=== PATIENT | female | born 1940 | race Caucasian/White ===

== ENCOUNTER 2022-07-10 19:54 | Inpatient (IN) | payer OTHER, SELFPAY ==
--- NOTE | ~2022-07-10 | US_ITS ---
EXAMINATION: US RETROPERITONEAL LIMITED (RENAL ONLY) CLINICAL INFORMATION: Right lower quadrant pain history of nephrolithiasis.. COMPARISON: None available. TECHNIQUE: Routine grayscale imaging of kidneys was performed. FINDINGS: RIGHT KIDNEY: 8.7 x 3.5 x 5.0 cm (SAG x AP x TRV). The kidney is normal in size, contour, and echogenicity. Renal cortical thickness is normal. No calculi or focal parenchymal lesions. No hydronephrosis. There is anechoic cyst in the upper pole measuring 2.2 x 1.9 x 1.7 cm. LEFT KIDNEY: 8.8 x 5.6 x 3.6 cm (SAG x AP x TRV). The kidney is normal in size, contour, and echogenicity. Renal cortical thickness is normal. No calculi or focal parenchymal lesions. No hydronephrosis. Few anechoic cysts seen. An upper pole cyst measures 1.1 x 0.9 x 0.9 cm, a lower pole cyst measures 1.0 x 1.1 x 1.0 cm and upper pole cyst measures 1.4 x 1.0 x 1.1 cm. US/US renal BI IMPRESSION: Bilateral renal cysts. There are no echogenic stones or hydronephrosis.
[2022-07-10 20:25] VITALS: BP 136/67; PULSE 78; TEMP 36.3
[2022-07-10 20:42] VITALS: BMI 15.4
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
[2022-07-11 07:27] LABS: Estimated Average Glucose 91 mg/dL; Hemoglobin A1c % 4.8 %
[2022-07-11 07:38] LABS: Alanine Aminotransferase 15 U/L (0-31); Albumin Level 3.3 g/dL (3.5-5.0); Alkaline Phosphatase 69 U/L (39-117); Anion Gap 10 (12-20); Aspartate Amino Transferase 23 U/L (5-31); Blood Urea Nitrogen 23 mg/dL (9-16); Calcium 9.4 mg/dL (8.4-10.2); Carbon Dioxide 28 mmol/L (22-29); Chloride 109 mmol/L (96-108); Cholesterol 224 mg/dL; Creatinine Clr Calc Pharmacy 27.5; Estimated Glomerular Filt Rate 59; Glucose Fasting 86 mg/dL (60-99); HDL Cholesterol 68 mg/dL; LDL Cholesterol Calculated 144 mg/dl; Potassium 3.9 mmol/L (3.3-5.1); Sodium 143 mmol/L (135-145); Total Protein 5.8 g/dL (6.5-8.0); Triglycerides 63 mg/dL
[2022-07-11 08:08] LABS: Folate 9.1 ng/mL (> or = 4.0); Vitamin B12 752 pg/mL (200-900)
[2022-07-11 08:40] VITALS: BP 106/55; PULSE 57; RESP 16; TEMP 36.6; O2SAT 99
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
[2022-07-11 18:00] VITALS: BP 107/53; PULSE 56; RESP 16; TEMP 36.8; O2SAT 97
[2022-07-11 18:01] LABS: Appearance Urine Clear; Color Urine Yellow; Glucose Urine UA Negative (Negative); Leukocyte Esterase Urine Trace (Negative); Nitrite Urine Negative (Negative); PH 5.5 (5.0-9.0); UMIC TRIGGER UACC YES; Urine Blood Negative (Negative); Urine Ketones Negative (Negative); Urine Protein Negative (Neg-Trace)
[2022-07-11 18:06] LABS: Bacteria Urine None Seen (None Seen); Hyaline Casts Urine 0-2 /LPF (0-2); RBC Urine 0-2 /HPF (0-2); UACC Culture Trigger YES
[2022-07-11] MEDS: OLANZapine 2.5 MG TABLET PO (20:31)
[2022-07-12 08:30] VITALS: BP 132/83; PULSE 71; RESP 18; TEMP 36.6; O2SAT 99
[2022-07-12] MEDS: Cyanocobalamin (Vitamin B-12) 1,000 MCG TABLET 1000 MCG PO (08:43)
[2022-07-12] MEDS: Calcium + Vitamin D 250 MG TABLET 500 MG PO (08:43)
[2022-07-12] MEDS: Furosemide 20 MG TABLET PO (08:43)
[2022-07-12] MEDS: amLODIPine Besylate 2.5 MG TABLET PO (08:43)
[2022-07-12] MEDS: Atorvastatin Calcium 10 MG TABLET PO (08:43)
--- NOTE | 2022-07-12 11:02 | PC.NURSE ---
Pt lost her balance and lowered herself on the toilet, c/o dizziness, weakness, VSS, sports writer notified Dr Serna and received new orders for 1:1 or safety
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
[2022-07-12 20:40] VITALS: BP 99/58; PULSE 59; RESP 16; TEMP 36.4; O2SAT 99
[2022-07-12] MEDS: risperiDONE 0.25 MG TABLET PO (20:55)
[2022-07-13 07:50] VITALS: BP 114/62; PULSE 75; RESP 18; TEMP 36.2; O2SAT 99
[2022-07-13] MEDS: Atorvastatin Calcium 10 MG TABLET PO (08:16)
[2022-07-13] MEDS: amLODIPine Besylate 2.5 MG TABLET PO (08:16)
[2022-07-13] MEDS: Calcium + Vitamin D 250 MG TABLET 500 MG PO (08:16)
[2022-07-13] MEDS: Cyanocobalamin (Vitamin B-12) 1,000 MCG TABLET 1000 MCG PO (08:16)
[2022-07-13] MEDS: Furosemide 20 MG TABLET PO (08:16)
--- NOTE | 2022-07-13 09:50 | PM.PSYDC ---
DS: Providers Provider Date of admission: 07/10/22 19:54 Primary care physician: Unknown Physician Consults: 07/10/22 23:22 Consult to Hospitalist Routine Comment: Consulting Provider: Hospitalist Reason For Exam: OSH admission DS: Diagnosis Discharge Diagnosis (1) Psychosis: Status: Acute (2) Delusional disorder, persecutory type: Status: Acute (3) Dementia with psychosis: Status: Acute DS: Medications Discharge Medications Home Medications: Home Medications Medication Instructions Recorded Confirmed amlodipine 2.5 mg tablet 2.5 mg PO DAILY 07/10/22 07/10/22 cyclosporine 0.05 % eye drops in a 1 drp ophthalmic (eye) BID 07/10/22 07/10/22 dropperette furosemide 20 mg tablet 20 mg PO DAILY 07/10/22 07/10/22 senna 8.6 mg PO DAILY PRN Constipation 07/10/22 07/10/22 simvastatin 10 mg PO DAILY 07/10/22 07/10/22 Data Data Completed and Pending Completed studies during hospitalization [Text1]: 07/11/22 07/11/22 07/11/22 06:58 06:58 17:48 Sodium 143 Potassium 3.9 Chloride 109 H Carbon Dioxide 28 Anion Gap 10 L BUN 23 H Creatinine 0.92 Estim Creat Clear Calc 27.5 Estimated GFR 59 Fasting Glucose 86 Estimat Average Glucose 91 Hemoglobin A1c % 4.8 Calcium 9.4 Total Bilirubin 1.0 AST 23 ALT 15 Alkaline Phosphatase 69 Total Protein 5.8 L Albumin 3.3 L Triglycerides 63 Cholesterol 224 LDL Cholesterol, Calc 144 HDL Cholesterol 68 Vitamin B12 752 Folate 9.1 TSH 1.90 Free T4 1.20 Urine Color Yellow Urine Appearance Clear Urine pH 5.5 Ur Specific [place] 1.010 Urine Protein Negative Urine Glucose (UA) Negative Urine Ketones Negative Urine Blood Negative Urine Nitrite Negative Ur Leukocyte Esterase Trace H Urine RBC 0-2 Urine WBC 6-10 H Ur Squamous Epith Cells 6-10 Urine Bacteria None Seen Hyaline Casts 0-2 07/11/22 18:07 Urine clean catch - Clean Catch Midstream Urine Culture - Preliminary Culture too young to evaluate. Imaging Diagnostic Imaging Impressions Renal Ultrasound 07/11/22 16:30 IMPRESSION: Bilateral renal cysts. There are no echogenic stones or hydronephrosis. DS: Summary Time Spent with Patient Time attestation: Total time managing care of this patient today ____ minutes. Discharge Plan Discharge Referrals: Physician,Unknown J [Primary Care Provider] - 1 Week Discharge Medications: No Action amlodipine 2.5 mg tablet 2.5 mg PO DAILY furosemide 20 mg tablet 20 mg PO DAILY cyclosporine 0.05 % dropperette 1 drp ophthalmic (eye) BID simvastatin tablet 10 mg PO DAILY senna tablet 8.6 mg PO DAILY PRN (Reason: Constipation)
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
--- NOTE | 2022-07-13 15:41 | MHC.CLN ---
NUTRITION PATIENT REPORTS THAT SHE HAS LOST WEIGHT OVER PAST YEAR. UNABLE TO QUANTIFY. BMI=15.4. AGREES TO ENSURE BID (NO CHOCOLATE). SUPPLEMENT PROVIDES 700 KCALS, 40 G PROTEIN. REPORTS THAT HAS NOT BEEN EATING MUCH. ENCOURAGE INTAKE AT MEALS AND SUPPLEMENT ABLE.
[2022-07-13 15:43] VITALS: BMI 15.4
[2022-07-13 18:00] VITALS: BP 113/58; PULSE 58; RESP 16; TEMP 36.2; O2SAT 100
[2022-07-13] MEDS: risperiDONE 0.25 MG TABLET 0.5 MG PO (20:07)
[2022-07-14 08:05] VITALS: BP 116/68; PULSE 77; RESP 16; TEMP 36; O2SAT 98
[2022-07-14] MEDS: amLODIPine Besylate 2.5 MG TABLET PO (09:37)
[2022-07-14] MEDS: Furosemide 20 MG TABLET PO (09:37)
[2022-07-14] MEDS: Atorvastatin Calcium 10 MG TABLET PO (09:38)
[2022-07-14] MEDS: Cyanocobalamin (Vitamin B-12) 1,000 MCG TABLET 1000 MCG PO (09:38)
[2022-07-14] MEDS: Calcium + Vitamin D 250 MG TABLET 500 MG PO (09:38)
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
[2022-07-14 18:00] VITALS: BP 103/49; PULSE 75; RESP 18; TEMP 36.4; O2SAT 97
[2022-07-14] MEDS: risperiDONE 0.25 MG TABLET 0.5 MG PO (20:20)
[2022-07-15 09:15] VITALS: BP 97/57; PULSE 68; TEMP 35.9; O2SAT 99
[2022-07-15] MEDS: Cyanocobalamin (Vitamin B-12) 1,000 MCG TABLET 1000 MCG PO (09:26)
[2022-07-15] MEDS: Calcium + Vitamin D 250 MG TABLET 500 MG PO (09:26)
[2022-07-15] MEDS: Atorvastatin Calcium 10 MG TABLET PO (09:26)
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
--- NOTE | 2022-07-15 15:56 | MHC.CLN ---
F/U STAFF REPORTS THAT PATIENT IS EATING SMALL AMOUNTS. PATIENT REPORTS NO CONCERNS WITH INTAKE AND LIKES ENSURE SUPPLEMENT. DIET=REGULAR WITH ENSURE BID (700 KCALS, 40 G PROTEIN). ENCOURAGE INTAKE OF MEALS AND SUPPLEMENT ABLE. RD TO FOLLOW WEEKLY.
[2022-07-15 19:00] VITALS: BP 97/55; PULSE 59; RESP 16; TEMP 36.1; O2SAT 96
[2022-07-15] MEDS: risperiDONE 0.25 MG TABLET 0.5 MG PO (21:13)
[2022-07-16 08:16] VITALS: BP 115/60; PULSE 75; RESP 18; TEMP 36.4; O2SAT 98
[2022-07-16] MEDS: Calcium + Vitamin D 250 MG TABLET 500 MG PO (09:24)
[2022-07-16] MEDS: Cyanocobalamin (Vitamin B-12) 1,000 MCG TABLET 1000 MCG PO (09:24)
[2022-07-16] MEDS: amLODIPine Besylate 2.5 MG TABLET PO (09:25)
[2022-07-16] MEDS: Atorvastatin Calcium 10 MG TABLET PO (09:25)
[2022-07-16] MEDS: Furosemide 20 MG TABLET PO (09:25)
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
[2022-07-16 15:32] VITALS: BMI 17.6
[2022-07-16 20:01] VITALS: BP 105/59; PULSE 64; RESP 16; TEMP 36.4; O2SAT 100
[2022-07-16] MEDS: risperiDONE 0.25 MG TABLET 0.5 MG PO (20:10)
[2022-07-17 09:00] VITALS: BP 107/53; PULSE 73; TEMP 36.7; O2SAT 97
[2022-07-17] MEDS: Atorvastatin Calcium 10 MG TABLET PO (09:00)
[2022-07-17] MEDS: Calcium + Vitamin D 250 MG TABLET 500 MG PO (09:01)
[2022-07-17] MEDS: amLODIPine Besylate 2.5 MG TABLET PO (09:01)
[2022-07-17] MEDS: Cyanocobalamin (Vitamin B-12) 1,000 MCG TABLET 1000 MCG PO (09:01)
[2022-07-17] MEDS: Artificial Tears 15 ML DROPS 1 DROP EYE-BOTH ×3 (09:02→20:52)
[2022-07-17] MEDS: Furosemide 20 MG TABLET PO (09:02)
--- NOTE | 2022-07-17 13:40 | P.PNPSI_ITS ---
Subjective Subjective Date of Service: 07/17/22 Reason For Visit: F29 Subjective Notes: Conditional Voluntary Interim History: The nursing staff reported the patient remains paranoid she has been talking about her Stalker and she stated that she has been hearing music all day long. The social services assistant reported will have a meeting next Wednesday and probably she will be back at her assisted living facility. On interview the patient denies or refused to engage in conversation regarding her Stalker. We will increase Risperdal up to 0.5 p.o. b.i.d. and 0.5 p.o. q .h.s. to target psychosis Mental Status Exam Mental Status Exam Patient Appearance: Well Grooomed and Appropriate Patient Orientation: Person and Situation Level of Consciousness: Awake and Appropriate Patient Behavior: Guarded and Passive Mood Description: Withdrawn Affect Description: Calm Patient Cognition Impaired: Yes Ability to Follow Directions: Good Speech Pattern: Impoverished and Appropriate Hallucinations: Auditory Delusions: Paranoid Ideation Thought Process: Distracted and Slowed Thinking Thought Content: positive for [place] and positive for Poverty of Content Judgement: Poor Diagnostics Vital Signs (24Hr): Vital Signs - 24 hr 07/16/22 20:01 07/17/22 06:00 Temperature 97.6 F 98.0 F Pulse Rate 64 73 Respiratory Rate 16 Blood Pressure 105/59 L 107/53 L Pulse Oximetry 100 97 Oxygen Delivery Method Room Air Room Air BMI result Body Mass Index 17.6 Labs 07/11/22 06:58 Imaging Radiology Impressions: ITS Impressions Renal Ultrasound 07/11/22 16:30 IMPRESSION: Bilateral renal cysts. There are no echogenic stones or hydronephrosis. Medications Medications Current Medications Acetaminophen (Acetaminophen 325 Mg Tablet) 650 mg PO Q6H PRN PRN Reason: Headache/Pain Mild Scale (1-3) Al Hydroxide/Mg Hydroxide (Magnesium Hydrox/Alum Hydrox 30 Ml Oral.Susp) 30 ml PO Q6H PRN PRN Reason: Heartburn/Nausea Amlodipine Besylate (Amlodipine Besylate 2.5 Mg Tablet) 2.5 mg PO DAILY [facility]; Protocol Last Admin: 07/17/22 09:01 Dose: 2.5 mg Artificial Tears (Artificial Tears 15 Ml Drops) 1 drop EYE-BOTH TID [facility] Last Admin: 07/17/22 09:02 Dose: 1 drop Atorvastatin Calcium (Atorvastatin Calcium 10 Mg Tablet) 10 mg PO DAILY [facility] Last Admin: 07/17/22 09:00 Dose: 10 mg Calcium Carbonate/Cholecalciferol (Calcium + Vitamin D 250 Mg Tablet) 500 mg PO DAILY [facility] Last Admin: 07/17/22 09:01 Dose: 500 mg Cyanocobalamin (Cyanocobalamin (Vitamin B-12) 1,000 Mcg Tablet) 1,000 mcg PO DAILY [facility] Last Admin: 07/17/22 09:01 Dose: 1,000 mcg Furosemide (Furosemide 20 Mg Tablet) 20 mg PO DAILY [facility]; Protocol Last Admin: 07/17/22 09:02 Dose: 20 mg Magnesium Hydroxide (Milk Of Magnesia 30 Ml Oral.Susp) 30 ml PO DAILY PRN PRN Reason: Constipation Risperidone (Risperidone 0.25 Mg Tablet) 0.25 mg PO TID PRN PRN Reason: Psychosis Risperidone (Risperidone 0.25 Mg Tablet) 0.5 mg PO BEDTIME [facility] Last Admin: 07/16/22 20:10 Dose: 0.5 mg Risperidone (Risperidone 0.25 Mg Tablet) 0.25 mg PO BID@0800,1500 [facility] Senna (Sennosides 8.6 Mg Tablet) 8.6 mg PO DAILY PRN PRN Reason: Constipation Trazodone HCl (Trazodone Hcl 50 Mg Tablet) 50 mg PO BEDTIME MRX1 PRN PRN Reason: Insomnia Allergies Allergies Allergy/AdvReac Type Severity Reaction Status Date / Time alendronate sodium AdvReac Unknown Verified 07/10/22 23:06 ondansetron [From Zofran] AdvReac Unknown Verified 07/10/22 23:06 oxybutynin AdvReac Unknown Verified 07/10/22 23:06 sulfamethoxazole AdvReac Unknown Verified 07/10/22 23:06 [From Bactrim] terazosin [From Hytrin] AdvReac Unknown Verified 07/10/22 23:06 trimethoprim [From Bactrim] AdvReac Unknown Verified 07/10/22 23:06 Assessment & Plan Assessment & Plan (1) Psychosis: Status: Acute Code(s): F29 - Unspecified psychosis not due to a substance or known physiological condition (2) Delusional disorder, persecutory type: Status: Acute Code(s): F22 - Delusional disorders (3) Dementia with psychosis: Status: Acute Code(s): F03.92 - Unspecified dementia, unspecified severity, with psychotic disturbance Plan 81 yo with possible dementia, admitted with paranoid and persecutory delusions. Patient believes she is being targeted by a man who enters her house, pricks her with needles and steals from her. She has been unable to sleep. Not eating. She is paranoid and barricading herself in her apartment. Admit to [facility] and group therapy Zyprexa was discontinue since he was too sedated and changed to Risperdal. We have been and start titrating slowly since she remains with auditory hallucinations and psychotic. On 07/17 to increase it to 0.25 p.o. b.i.d. and 0.5 p.o. q.h.s. a total dose of 1 mg a day. We will monitor her blood pressure since she was hypotensive history Reason for continued inpatient stay Substantial Risk for: inability to function, rapid decompensation and med/psych decompensation Time Spent With Patient Time: Total time managing care of this patient today __20__ minutes.
[2022-07-17] MEDS: risperiDONE 0.25 MG TABLET PO (16:00)
[2022-07-17 18:00] VITALS: BP 120/63; PULSE 67; RESP 18; TEMP 36.2; O2SAT 96
[2022-07-17] MEDS: risperiDONE 0.25 MG TABLET 0.5 MG PO (20:52)
[2022-07-18 07:58] VITALS: BP 123/62; PULSE 66; RESP 18; TEMP 36.4; O2SAT 99
[2022-07-18] MEDS: amLODIPine Besylate 2.5 MG TABLET PO (08:53)
[2022-07-18] MEDS: Furosemide 20 MG TABLET PO (08:53)
[2022-07-18] MEDS: risperiDONE 0.25 MG TABLET PO (08:53)
[2022-07-18] MEDS: Calcium + Vitamin D 250 MG TABLET 500 MG PO (08:54)
[2022-07-18] MEDS: Atorvastatin Calcium 10 MG TABLET PO (08:59)
[2022-07-18] MEDS: Cyanocobalamin (Vitamin B-12) 1,000 MCG TABLET 1000 MCG PO (08:59)
[2022-07-18] MEDS: Artificial Tears 15 ML DROPS 1 DROP EYE-BOTH ×2 (09:00→14:44)
--- NOTE | 2022-07-18 11:08 | P.PNPSI_ITS ---
Subjective Subjective Date of Service: 07/18/22 Reason For Visit: F29 Subjective Notes: Conditional Voluntary Interim History: The nursing staff reported the patient had been compliant with treatment, she slept poorly 5 hours and she stated that there is noises in her bedroom. She requested a room change. She remains delusional. She has been medication compliant and she feels safe in the unit. On interview the patient denies new symptoms, still paranoid. Mental Status Exam Mental Status Exam Patient Appearance: Appropriate Patient Orientation: Person and Situation Level of Consciousness: Awake and Appropriate Patient Behavior: Guarded and Passive Mood Description: Withdrawn Affect Description: Constricted Patient Cognition Impaired: Yes Ability to Follow Directions: Good Speech Pattern: Clear Hallucinations: None Delusions: Not Present Thought Process: Distracted and Linear Thought Content: positive for [place] Judgement: Poor Diagnostics Vital Signs (24Hr): Vital Signs - 24 hr 07/17/22 18:00 07/18/22 07:58 Temperature 97.1 F 97.5 F Pulse Rate 67 66 Respiratory Rate 18 18 Blood Pressure 120/63 123/62 Pulse Oximetry 96 99 Oxygen Delivery Method Room Air Room Air BMI result Body Mass Index 17.6 Labs 07/11/22 06:58 Imaging Radiology Impressions: ITS Impressions Renal Ultrasound 07/11/22 16:30 IMPRESSION: Bilateral renal cysts. There are no echogenic stones or hydronephrosis. Medications Medications Current Medications Acetaminophen (Acetaminophen 325 Mg Tablet) 650 mg PO Q6H PRN PRN Reason: Headache/Pain Mild Scale (1-3) Al Hydroxide/Mg Hydroxide (Magnesium Hydrox/Alum Hydrox 30 Ml Oral.Susp) 30 ml PO Q6H PRN PRN Reason: Heartburn/Nausea Amlodipine Besylate (Amlodipine Besylate 2.5 Mg Tablet) 2.5 mg PO DAILY [facility]; Protocol Last Admin: 07/18/22 08:53 Dose: 2.5 mg Artificial Tears (Artificial Tears 15 Ml Drops) 1 drop EYE-BOTH TID [facility] Last Admin: 07/18/22 09:00 Dose: 1 drop Atorvastatin Calcium (Atorvastatin Calcium 10 Mg Tablet) 10 mg PO DAILY [facility] Last Admin: 07/18/22 08:59 Dose: 10 mg Calcium Carbonate/Cholecalciferol (Calcium + Vitamin D 250 Mg Tablet) 500 mg PO DAILY [facility] Last Admin: 07/18/22 08:54 Dose: 500 mg Cyanocobalamin (Cyanocobalamin (Vitamin B-12) 1,000 Mcg Tablet) 1,000 mcg PO DAILY [facility] Last Admin: 07/18/22 08:59 Dose: 1,000 mcg Furosemide (Furosemide 20 Mg Tablet) 20 mg PO DAILY [facility]; Protocol Last Admin: 07/18/22 08:53 Dose: 20 mg Magnesium Hydroxide (Milk Of Magnesia 30 Ml Oral.Susp) 30 ml PO DAILY PRN PRN Reason: Constipation Risperidone (Risperidone 0.25 Mg Tablet) 0.25 mg PO TID PRN PRN Reason: Psychosis Risperidone (Risperidone 0.25 Mg Tablet) 0.5 mg PO BEDTIME [facility] Last Admin: 07/17/22 20:52 Dose: 0.5 mg Risperidone (Risperidone 0.25 Mg Tablet) 0.25 mg PO BID@0800,1500 [facility] Last Admin: 07/18/22 08:53 Dose: 0.25 mg Senna (Sennosides 8.6 Mg Tablet) 8.6 mg PO DAILY PRN PRN Reason: Constipation Trazodone HCl (Trazodone Hcl 50 Mg Tablet) 50 mg PO BEDTIME MRX1 PRN PRN Reason: Insomnia Allergies Allergies Allergy/AdvReac Type Severity Reaction Status Date / Time alendronate sodium AdvReac Unknown Verified 07/10/22 23:06 ondansetron [From Zofran] AdvReac Unknown Verified 07/10/22 23:06 oxybutynin AdvReac Unknown Verified 07/10/22 23:06 sulfamethoxazole AdvReac Unknown Verified 07/10/22 23:06 [From Bactrim] terazosin [From Hytrin] AdvReac Unknown Verified 07/10/22 23:06 trimethoprim [From Bactrim] AdvReac Unknown Verified 07/10/22 23:06 Assessment & Plan Assessment & Plan (1) Psychosis: Status: Acute Code(s): F29 - Unspecified psychosis not due to a substance or known physiological condition (2) Delusional disorder, persecutory type: Status: Acute Code(s): F22 - Delusional disorders (3) Dementia with psychosis: Status: Acute Code(s): F03.92 - Unspecified dementia, unspecified severity, with psychotic disturbance Plan 81 yo with possible dementia, admitted with paranoid and persecutory delusions. Patient believes she is being targeted by a man who enters her house, pricks her with needles and steals from her. She has been unable to sleep. Not eating. She is paranoid and barricading herself in her apartment. Admit to [facility] information Milieu and group therapy Zyprexa was discontinue since he was too sedated and changed to Risperdal. We have been and start titrating slowly since she remains with auditory hallucinations and psychotic. On 07/17 to increase it to 0.25 p.o. b.i.d. and 0.5 p.o. q.h.s. a total dose of 1 mg a day. We will monitor her blood pressure since she was hypotensive history Reason for continued inpatient stay Substantial Risk for: inability to function, rapid decompensation and med/psych decompensation Time Spent With Patient Time: Total time managing care of this patient today _20___ minutes.
--- NOTE | 2022-07-18 14:57 | PC.NURSE ---
Held 1500 Risperidone due to patient reporting sedation and observable drowsiness. MD Zuniga aware.
[2022-07-18 18:00] VITALS: BP 114/66; PULSE 69; RESP 18; TEMP 35.9; O2SAT 100
[2022-07-18] MEDS: risperiDONE 0.25 MG TABLET 0.5 MG PO (20:38)
[2022-07-19 08:15] VITALS: BP 108/56; PULSE 79; RESP 18; TEMP 36.1; O2SAT 99
[2022-07-19] MEDS: Furosemide 20 MG TABLET PO (08:33)
[2022-07-19] MEDS: Atorvastatin Calcium 10 MG TABLET PO (08:33)
[2022-07-19] MEDS: Calcium + Vitamin D 250 MG TABLET 500 MG PO (08:33)
[2022-07-19] MEDS: Artificial Tears 15 ML DROPS 1 DROP EYE-BOTH ×2 (08:34→20:30)
[2022-07-19] MEDS: amLODIPine Besylate 2.5 MG TABLET PO (08:34)
[2022-07-19] MEDS: Cyanocobalamin (Vitamin B-12) 1,000 MCG TABLET 1000 MCG PO (08:34)
--- NOTE | 2022-07-19 08:35 | HO.PSYCHPN ---
Subjective Subjective Date of Service: 07/19/22 Reason For Visit: F29 Subjective Notes: Conditional Voluntary Interim History: The nursing staff reported the patient had been compliant with medications but she feels very tired she stated the Risperdal makes her probably to sleepy. , she remains psychotic and paranoid at times with the Stalker coming to visit here. She feels safe in this unit. On interview the patient denies new symptoms pleasantly confused easily redirectable. Mental Status Exam Mental Status Exam Patient Appearance: Well Grooomed and Appropriate Patient Orientation: Person and Situation Level of Consciousness: Awake and Appropriate Patient Behavior: Guarded and Passive Mood Description: Withdrawn Affect Description: Constricted Patient Cognition Impaired: Yes Ability to Follow Directions: Good Speech Pattern: Clear Hallucinations: None Delusions: Not Present Thought Process: Distracted and Slowed Thinking Thought Content: positive for [place] and positive for Poverty of Content Judgement: Fair Diagnostics Vital Signs (24Hr): Vital Signs - 24 hr 07/18/22 18:00 Temperature 96.7 F L Pulse Rate 69 Respiratory Rate 18 Blood Pressure 114/66 Pulse Oximetry 100 Oxygen Delivery Method Room Air BMI result Body Mass Index 17.6 Labs 07/11/22 06:58 Imaging Radiology Impressions: ITS Impressions Renal Ultrasound 07/11/22 16:30 IMPRESSION: Bilateral renal cysts. There are no echogenic stones or hydronephrosis. Medications Medications Current Medications Acetaminophen (Acetaminophen 325 Mg Tablet) 650 mg PO Q6H PRN PRN Reason: Headache/Pain Mild Scale (1-3) Al Hydroxide/Mg Hydroxide (Magnesium Hydrox/Alum Hydrox 30 Ml Oral.Susp) 30 ml PO Q6H PRN PRN Reason: Heartburn/Nausea Amlodipine Besylate (Amlodipine Besylate 2.5 Mg Tablet) 2.5 mg PO DAILY [facility]; Protocol Last Admin: 07/18/22 08:53 Dose: 2.5 mg Artificial Tears (Artificial Tears 15 Ml Drops) 1 drop EYE-BOTH TID [facility] Last Admin: 07/19/22 05:03 Dose: Not Given Atorvastatin Calcium (Atorvastatin Calcium 10 Mg Tablet) 10 mg PO DAILY [facility] Last Admin: 07/18/22 08:59 Dose: 10 mg Calcium Carbonate/Cholecalciferol (Calcium + Vitamin D 250 Mg Tablet) 500 mg PO DAILY [facility] Last Admin: 07/18/22 08:54 Dose: 500 mg Cyanocobalamin (Cyanocobalamin (Vitamin B-12) 1,000 Mcg Tablet) 1,000 mcg PO DAILY [facility] Last Admin: 07/18/22 08:59 Dose: 1,000 mcg Furosemide (Furosemide 20 Mg Tablet) 20 mg PO DAILY [facility]; Protocol Last Admin: 07/18/22 08:53 Dose: 20 mg Magnesium Hydroxide (Milk Of Magnesia 30 Ml Oral.Susp) 30 ml PO DAILY PRN PRN Reason: Constipation Risperidone (Risperidone 0.25 Mg Tablet) 0.25 mg PO TID PRN PRN Reason: Psychosis Risperidone (Risperidone 0.25 Mg Tablet) 0.5 mg PO BEDTIME [facility] Last Admin: 07/18/22 20:38 Dose: 0.5 mg Risperidone (Risperidone 0.25 Mg Tablet) 0.25 mg PO BID@0800,1500 [facility] Last Admin: 07/18/22 12:16 Dose: Not Given Senna (Sennosides 8.6 Mg Tablet) 8.6 mg PO DAILY PRN PRN Reason: Constipation Trazodone HCl (Trazodone Hcl 50 Mg Tablet) 50 mg PO BEDTIME MRX1 PRN PRN Reason: Insomnia Allergies Allergies Allergy/AdvReac Type Severity Reaction Status Date / Time alendronate sodium AdvReac Unknown Verified 07/10/22 23:06 ondansetron [From Zofran] AdvReac Unknown Verified 07/10/22 23:06 oxybutynin AdvReac Unknown Verified 07/10/22 23:06 sulfamethoxazole AdvReac Unknown Verified 07/10/22 23:06 [From Bactrim] terazosin [From Hytrin] AdvReac Unknown Verified 07/10/22 23:06 trimethoprim [From Bactrim] AdvReac Unknown Verified 07/10/22 23:06 Assessment & Plan Assessment & Plan (1) Psychosis: Status: Acute Code(s): F29 - Unspecified psychosis not due to a substance or known physiological condition (2) Delusional disorder, persecutory type: Status: Acute Code(s): F22 - Delusional disorders (3) Dementia with psychosis: Status: Acute Code(s): F03.92 - Unspecified dementia, unspecified severity, with psychotic disturbance Plan 81 yo with possible dementia, admitted with paranoid and persecutory delusions. Patient believes she is being targeted by a man who enters her house, pricks her with needles and steals from her. She has been unable to sleep. Not eating. She is paranoid and barricading herself in her apartment. Admit to [facility] information Milieu and group therapy Zyprexa was discontinue since he was too sedated and changed to Risperdal. We have been and start titrating slowly since she remains with auditory hallucinations and psychotic. On 07/17 to increase it to 0.25 p.o. b.i.d. and 0.5 p.o. q.h.s. a total dose of 1 mg a day. We will monitor her blood pressure since she was hypotensive history Reason for continued inpatient stay Substantial Risk for: inability to function, rapid decompensation and med/psych decompensation Time Spent With Patient Time: Total time managing care of this patient today ____ minutes.
--- NOTE | 2022-07-19 15:31 | PC.NURSE ---
0900 and 1500 Risperdal not given due to Celina reporting sedation from medication and not wanting to take; MD Zuniga aware.
[2022-07-19 18:00] VITALS: BP 104/53; PULSE 65; RESP 18; TEMP 35.9; O2SAT 99
[2022-07-19] MEDS: risperiDONE 0.25 MG TABLET 0.5 MG PO (20:25)
[2022-07-19] MEDS: traZODone HCL 50 MG TABLET PO (20:26)
[2022-07-20 09:40] VITALS: BP 137/81; PULSE 81; RESP 18; TEMP 36.4; O2SAT 98
[2022-07-20] MEDS: Cyanocobalamin (Vitamin B-12) 1,000 MCG TABLET 1000 MCG PO (09:41)
[2022-07-20] MEDS: Atorvastatin Calcium 10 MG TABLET PO (09:41)
[2022-07-20] MEDS: Calcium + Vitamin D 250 MG TABLET 500 MG PO (09:43)
[2022-07-20] MEDS: Furosemide 20 MG TABLET PO (09:44)
[2022-07-20] MEDS: amLODIPine Besylate 2.5 MG TABLET PO (09:44)
[2022-07-20] MEDS: Artificial Tears 15 ML DROPS 1 DROP EYE-BOTH ×2 (09:44→15:34)
--- NOTE | 2022-07-20 16:00 | HO.PSYCHPN ---
Subjective Subjective Date of Service: 07/20/22 Reason For Visit: F29 Subjective Notes: Conditional Voluntary Interim History: The nursing staff reported that she has been anxious she does not like Risperdal during the day because it over sedate her. Today we had a family meeting with the healthcare proxy and we discussed discharge planning. On interview the patient denies paranoia but during the family meeting she disclosed that she still believes that the Stalker is next to him. We decided to change the Risperdal only at night. Mental Status Exam Mental Status Exam Patient Appearance: Well Grooomed and Appropriate Patient Orientation: Person and Situation Level of Consciousness: Awake and Appropriate Patient Behavior: Guarded and Passive Mood Description: Calm Affect Description: Constricted Patient Cognition Impaired: Yes Ability to Follow Directions: Good Speech Pattern: Impoverished and Appropriate Hallucinations: None Delusions: Not Present Thought Process: Distracted and Evasive Thought Content: positive for [place], positive for [place] and positive for Poverty of Content Judgement: Fair Diagnostics Vital Signs (24Hr): Vital Signs - 24 hr 07/19/22 18:00 07/20/22 09:40 Temperature 96.7 F L 97.6 F Pulse Rate 65 81 Respiratory Rate 18 18 Blood Pressure 104/53 L 137/81 Pulse Oximetry 99 98 Oxygen Delivery Method Room Air Room Air BMI result Body Mass Index 17.6 Labs 07/11/22 06:58 Imaging Radiology Impressions: ITS Impressions Renal Ultrasound 07/11/22 16:30 IMPRESSION: Bilateral renal cysts. There are no echogenic stones or hydronephrosis. Medications Medications Current Medications Acetaminophen (Acetaminophen 325 Mg Tablet) 650 mg PO Q6H PRN PRN Reason: Headache/Pain Mild Scale (1-3) Al Hydroxide/Mg Hydroxide (Magnesium Hydrox/Alum Hydrox 30 Ml Oral.Susp) 30 ml PO Q6H PRN PRN Reason: Heartburn/Nausea Amlodipine Besylate (Amlodipine Besylate 2.5 Mg Tablet) 2.5 mg PO DAILY [facility]; Protocol Last Admin: 07/20/22 09:44 Dose: 2.5 mg Artificial Tears (Artificial Tears 15 Ml Drops) 1 drop EYE-BOTH TID [facility] Last Admin: 07/20/22 15:34 Dose: 1 drop Atorvastatin Calcium (Atorvastatin Calcium 10 Mg Tablet) 10 mg PO DAILY [facility] Last Admin: 07/20/22 09:41 Dose: 10 mg Calcium Carbonate/Cholecalciferol (Calcium + Vitamin D 250 Mg Tablet) 500 mg PO DAILY [facility] Last Admin: 07/20/22 09:43 Dose: 500 mg Cyanocobalamin (Cyanocobalamin (Vitamin B-12) 1,000 Mcg Tablet) 1,000 mcg PO DAILY [facility] Last Admin: 07/20/22 09:41 Dose: 1,000 mcg Furosemide (Furosemide 20 Mg Tablet) 20 mg PO DAILY [facility]; Protocol Last Admin: 07/20/22 09:44 Dose: 20 mg Magnesium Hydroxide (Milk Of Magnesia 30 Ml Oral.Susp) 30 ml PO DAILY PRN PRN Reason: Constipation Risperidone (Risperidone 0.25 Mg Tablet) 0.25 mg PO TID PRN PRN Reason: Psychosis Risperidone (Risperidone 1 Mg Tablet) 1 mg PO BEDTIME [facility] Senna (Sennosides 8.6 Mg Tablet) 8.6 mg PO DAILY PRN PRN Reason: Constipation Trazodone HCl (Trazodone Hcl 50 Mg Tablet) 50 mg PO BEDTIME MRX1 PRN PRN Reason: Insomnia Last Admin: 07/19/22 20:26 Dose: 50 mg Allergies Allergies Allergy/AdvReac Type Severity Reaction Status Date / Time alendronate sodium AdvReac Unknown Verified 07/10/22 23:06 ondansetron [From Zofran] AdvReac Unknown Verified 07/10/22 23:06 oxybutynin AdvReac Unknown Verified 07/10/22 23:06 sulfamethoxazole AdvReac Unknown Verified 07/10/22 23:06 [From Bactrim] terazosin [From Hytrin] AdvReac Unknown Verified 07/10/22 23:06 trimethoprim [From Bactrim] AdvReac Unknown Verified 07/10/22 23:06 Assessment & Plan Assessment & Plan (1) Psychosis: Status: Acute Code(s): F29 - Unspecified psychosis not due to a substance or known physiological condition (2) Delusional disorder, persecutory type: Status: Acute Code(s): F22 - Delusional disorders (3) Dementia with psychosis: Status: Acute Code(s): F03.92 - Unspecified dementia, unspecified severity, with psychotic disturbance Plan 81 yo with possible dementia, admitted with paranoid and persecutory delusions. Patient believes she is being targeted by a man who enters her house, pricks her with needles and steals from her. She has been unable to sleep. Not eating. She is paranoid and barricading herself in her apartment. Admit to [facility] information Milieu and group therapy Zyprexa was discontinue since he was too sedated and changed to Risperdal. We have been and start titrating slowly since she remains with auditory hallucinations and psychotic. On 07/17 to increase it to 0.25 p.o. b.i.d. and 0.5 p.o. q.h.s. a total dose of 1 mg a day. On July 20 we are changing Risperdal at night. We will monitor her blood pressure since she was hypotensive history Reason for continued inpatient stay Substantial Risk for: inability to function, rapid decompensation and med/psych decompensation Time Spent With Patient Time: Total time managing care of this patient today __20__ minutes.
[2022-07-20 18:00] VITALS: BP 105/58; PULSE 61; RESP 17; TEMP 35.9; O2SAT 99
[2022-07-20] MEDS: risperiDONE 1 MG TABLET PO (20:34)
[2022-07-21 08:30] VITALS: BP 117/59; PULSE 65; RESP 18; TEMP 35.8; O2SAT 97
[2022-07-21] MEDS: Calcium + Vitamin D 250 MG TABLET 500 MG PO (08:34)
[2022-07-21] MEDS: Cyanocobalamin (Vitamin B-12) 1,000 MCG TABLET 1000 MCG PO (08:35)
[2022-07-21] MEDS: Furosemide 20 MG TABLET PO (08:35)
[2022-07-21] MEDS: Artificial Tears 15 ML DROPS 1 DROP EYE-BOTH ×3 (08:36→20:38)
[2022-07-21] MEDS: amLODIPine Besylate 2.5 MG TABLET PO (08:59)
[2022-07-21] MEDS: Atorvastatin Calcium 10 MG TABLET PO (09:02)
[2022-07-21 09:30] VITALS: BP 132/63; PULSE 73
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
[2022-07-21 18:00] VITALS: BP 98/53; PULSE 71; RESP 20; TEMP 36.3; O2SAT 99
[2022-07-21] MEDS: risperiDONE 1 MG TABLET PO (20:38)
[2022-07-22 08:10] VITALS: BP 111/52; PULSE 77; RESP 18; TEMP 36.4; O2SAT 98
[2022-07-22] MEDS: Calcium + Vitamin D 250 MG TABLET 500 MG PO (08:47)
[2022-07-22] MEDS: Furosemide 20 MG TABLET PO (08:47)
[2022-07-22] MEDS: Cyanocobalamin (Vitamin B-12) 1,000 MCG TABLET 1000 MCG PO (08:47)
[2022-07-22] MEDS: Atorvastatin Calcium 10 MG TABLET PO (08:47)
[2022-07-22] MEDS: amLODIPine Besylate 2.5 MG TABLET PO (08:47)
[2022-07-22] MEDS: Artificial Tears 15 ML DROPS 1 DROP EYE-BOTH (08:47)
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
--- NOTE | 2022-07-22 14:58 | MHC.CLN ---
F/U CONTINUES TO EAT SMALL AMOUNTS. DIET=REGULAR WITH ENSURE BID (700 KCALS, 40 G PROTEIN)-APPROPRIATE. ENCOURAGE INTAKE OF MEALS AND SUPPLEMENT ABLE. RD TO FOLLOW WEEKLY.
[2022-07-22 18:00] VITALS: BP 91/52; PULSE 69; RESP 16; TEMP 36.3; O2SAT 100
[2022-07-22] MEDS: risperiDONE 1 MG TABLET PO (20:17)
[2022-07-23] MEDS: Artificial Tears 15 ML DROPS 1 DROP EYE-BOTH ×5 (05:22→20:46)
[2022-07-23 09:30] VITALS: BP 108/66; PULSE 69; RESP 15; TEMP 36.3; O2SAT 98
[2022-07-23] MEDS: Calcium + Vitamin D 250 MG TABLET 500 MG PO (10:15)
[2022-07-23] MEDS: Atorvastatin Calcium 10 MG TABLET PO (10:15)
[2022-07-23] MEDS: Furosemide 20 MG TABLET PO (10:15)
[2022-07-23] MEDS: Cyanocobalamin (Vitamin B-12) 1,000 MCG TABLET 1000 MCG PO (10:15)
[2022-07-23] MEDS: amLODIPine Besylate 2.5 MG TABLET PO (10:16)
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
[2022-07-23 19:30] VITALS: BP 109/63; PULSE 72; RESP 16; TEMP 36.7; O2SAT 96
[2022-07-24 09:30] VITALS: BP 93/54; PULSE 74; RESP 15; TEMP 36.5; O2SAT 95
[2022-07-24] MEDS: Calcium + Vitamin D 250 MG TABLET 500 MG PO (13:05)
[2022-07-24] MEDS: Cyanocobalamin (Vitamin B-12) 1,000 MCG TABLET 1000 MCG PO (13:05)
[2022-07-24] MEDS: Artificial Tears 15 ML DROPS 1 DROP EYE-BOTH ×2 (13:06→21:39)
[2022-07-24] MEDS: Atorvastatin Calcium 10 MG TABLET PO (13:06)
--- NOTE | 2022-07-24 15:46 | MHC.SL.SWA ---
Speech Pathologist Impression: WFL Risk of Aspiration Due to: Neurological Condition Reduced Cognition Dysphasia Diet Status: No changes Liquid Consistency and Strategies for Safe Swallow: Liquid Intake Recommendation: Thin Liquid Intake Strategies: Small Sips Solid Food Consistency: Dietary Recommendations: Regular Additional Modifications to Solid Foods: Unremarkable exam. Pt tolerated all consistencies solid and liquid trials, no overt s/s of aspiration. Pt denies having any trouble swallowing food or drinks, but reported large pills getting stuck. She stated she was eventually able to get pills down yesterday when she took more sips of liquid and bites of yogurt. Recommend continue on REGULAR texture solids and THIN liquids. Pills CRUSHED in PUREE when possible, otherwise follow with additional sips of liquid and/or bites of puree. No changes made to diet order. Further ST intervention no longer warranted. Please re-refer with any changes or if DIRECTOR UTILIZATION MANAGEMENT can be of further assistance. Notified , RN, RD via 3scale Message. Oral Medication Intake: Crushed with Puree Please contact the pharmacy regarding appropriate crushable or liquid drug formulations that are available whenever modified delivery is recommended. Compensatory Strategies and Precautions to be Taken for Safe Swallow: Sitting Upright (90 deg) Double Swallow Small Bites and Sips Alternate Liquids/Solids Rate of Ingestion Change Supervision While Eating and Drinking for Safe Swallow: Intermittent Supervision Recommendation for Speech: NA:Typical Evaluation Comment: D/C Investments Manager Clinican/Clinical Fellow: No Supervisory Statement: I have reviewed and agree with the student/clinical fellow's documentation: N/A Speech Language Pathologist: Chloe Gilliland M.A., CCC-DIRECTOR UTILIZATION MANAGEMENT
[2022-07-24 18:00] VITALS: BP 109/57; PULSE 68; RESP 16; TEMP 36.2; O2SAT 97
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
[2022-07-24] MEDS: risperiDONE 1 MG TABLET PO (21:34)
[2022-07-24] MEDS: Donepezil HCl 5 MG TABLET PO (21:34)
[2022-07-25 07:45] VITALS: BP 95/49; PULSE 66; RESP 18; TEMP 36.4; O2SAT 96
[2022-07-25] MEDS: Magnesium Hydrox/Alum Hydrox 30 ML ORAL.SUSP PO ×2 (08:23→22:15)
[2022-07-25 09:40] VITALS: BP 107/57; PULSE 64
--- NOTE | 2022-07-25 17:19 | HO.PSYCHPN ---
Subjective Subjective Date of Service: 07/25/22 Reason For Visit: F29 Subjective Notes: Conditional Voluntary Interim History: Pt again in bed for most of morning. She reports feeling tired but overall doing well. She was more visible for meals. She denies SI/HI. No behavioral concerns. Per nursing, BP 93/53 Hr 109- will d/c amlodipine, hold lasix, Review of Systems Review of Systems General: No fevers, malaise, unintentional weight loss HEENT: No blurred vision, diplopia. No sore throat, nasal congestion, rhinorrhea, sinus pain, ear pain Cardiovascular: No chest pain, palpitations, or leg edema Respiratory: No shortness of breath, wheezing, cough GI: +RLQ pain. No nausea, vomiting, diarrhea, constipation, melena, hematochezia : No dysuria, hematuria, increased urinary frequency, decreased urinary output MSK: No myalgia, back pain Neuro: No headaches, weakness, paresthesias Skin: No rashes or lesions Mental Status Exam Mental Status Exam Patient Appearance: Appropriate Patient Orientation: Person and Situation Level of Consciousness: Awake and Appropriate Patient Behavior: Guarded and Passive Mood Description: Withdrawn Affect Description: Constricted Patient Cognition Impaired: Yes Ability to Follow Directions: Good Speech Pattern: Clear Memory Description: Immediate Impaired (forgets she told this business writer the story of her clothes being stolen) and Episodic Impaired Diagnostics Vital Signs (24Hr): Vital Signs - 24 hr 07/24/22 18:00 07/25/22 07:45 07/25/22 09:40 Temperature 97.1 F 97.5 F Pulse Rate 68 66 64 Respiratory Rate 16 18 Blood Pressure 109/57 L 95/49 L 107/57 L Pulse Oximetry 97 96 Oxygen Delivery Method Room Air Room Air BMI result Body Mass Index 17.6 Labs 07/11/22 06:58 Imaging Radiology Impressions: ITS Impressions Renal Ultrasound 07/11/22 16:30 IMPRESSION: Bilateral renal cysts. There are no echogenic stones or hydronephrosis. Medications Medications Current Medications Acetaminophen (Acetaminophen 325 Mg Tablet) 650 mg PO Q6H PRN PRN Reason: Headache/Pain Mild Scale (1-3) Al Hydroxide/Mg Hydroxide (Magnesium Hydrox/Alum Hydrox 30 Ml Oral.Susp) 30 ml PO Q6H PRN PRN Reason: Heartburn/Nausea Last Admin: 07/25/22 08:23 Dose: 30 ml Amlodipine Besylate (Amlodipine Besylate 2.5 Mg Tablet) 2.5 mg PO DAILY [facility]; Protocol Last Admin: 07/25/22 10:06 Dose: Not Given Artificial Tears (Artificial Tears 15 Ml Drops) 1 drop EYE-BOTH TID [facility] Last Admin: 07/25/22 15:31 Dose: Not Given Atorvastatin Calcium (Atorvastatin Calcium 10 Mg Tablet) 10 mg PO DAILY [facility] Last Admin: 07/25/22 13:26 Dose: Not Given Calcium Carbonate/Cholecalciferol (Calcium + Vitamin D 250 Mg Tablet) 500 mg PO DAILY [facility] Last Admin: 07/25/22 13:26 Dose: Not Given Cyanocobalamin (Cyanocobalamin (Vitamin B-12) 1,000 Mcg Tablet) 1,000 mcg PO DAILY [facility] Last Admin: 07/25/22 13:26 Dose: Not Given Donepezil HCl (Donepezil Hcl 5 Mg Tablet) 5 mg PO BEDTIME [facility] Last Admin: 07/24/22 21:34 Dose: 5 mg Furosemide (Furosemide 20 Mg Tablet) 20 mg PO DAILY [facility]; Protocol Last Admin: 07/25/22 10:06 Dose: Not Given Magnesium Hydroxide (Milk Of Magnesia 30 Ml Oral.Susp) 30 ml PO DAILY PRN PRN Reason: Constipation Risperidone (Risperidone 0.25 Mg Tablet) 0.25 mg PO TID PRN PRN Reason: Psychosis Risperidone (Risperidone 1 Mg Tablet) 1 mg PO BEDTIME [facility] Last Admin: 07/24/22 21:34 Dose: 1 mg Senna (Sennosides 8.6 Mg Tablet) 8.6 mg PO DAILY PRN PRN Reason: Constipation Trazodone HCl (Trazodone Hcl 50 Mg Tablet) 50 mg PO BEDTIME MRX1 PRN PRN Reason: Insomnia Last Admin: 07/19/22 20:26 Dose: 50 mg Allergies Allergies Allergy/AdvReac Type Severity Reaction Status Date / Time alendronate sodium Allergy Unknown Verified 07/21/22 08:50 ondansetron [From Zofran] Allergy Unknown Verified 07/21/22 08:50 oxybutynin Allergy Unknown Verified 07/21/22 08:50 sulfamethoxazole Allergy Unknown Verified 07/21/22 08:50 [From Bactrim] terazosin [From Hytrin] Allergy Unknown Verified 07/21/22 08:50 trimethoprim [From Bactrim] Allergy Unknown Verified 07/21/22 08:50 Assessment & Plan Assessment & Plan (1) Vascular dementia, moderate, with psychotic disturbance: Status: Acute Code(s): F01.B2 - Vascular dementia, moderate, with psychotic disturbance Plan 81 yo with possible dementia, admitted with paranoid and persecutory delusions. Patient believes she is being targeted by a man who enters her house, pricks her with needles and steals from her. She has been unable to sleep. Not eating. She is paranoid and barricading herself in her apartment. Plan 07/24 continue current tx. 07/25 hotn, d/c amlodipine (BP low and ortho), hold lasiks (evaluate need for it given hotn and ortho hotn). Reason for continued inpatient stay Substantial Risk for: inability to function Time Spent With Patient Time: Total time managing care of this patient today ____ minutes.
[2022-07-25 19:30] VITALS: BP 110/56; PULSE 65; RESP 18; TEMP 36.3; O2SAT 99
[2022-07-25] MEDS: Donepezil HCl 5 MG TABLET PO (20:28)
[2022-07-25] MEDS: risperiDONE 1 MG TABLET PO (20:28)
[2022-07-25] MEDS: Artificial Tears 15 ML DROPS 1 DROP EYE-BOTH (20:28)
[2022-07-26 08:28] VITALS: BP 101/50; PULSE 78; RESP 18; TEMP 36.2; O2SAT 97
[2022-07-26 09:13] LABS: MANUAL DIFF FLAG NO
[2022-07-26 09:16] LABS: Basophils Percent Auto 0.2 % (0-2); Eosinophils Percent Auto 0.2 % (0-4); Hematocrit 40.9 % (37.0-47.0); Hemoglobin 13.1 g/dl (12.0-16.0); Imm Gran Abs Auto 0.03 X10*3/uL (0.00-0.03); Imm Gran Pct Auto 0.3 % (0.0-0.4); Lymphocytes Absolute Auto 1.7 X10*3/uL (1.2-4.9); Lymphocytes Percent Auto 19.3 % (20-40); Mean Corpuscular Hemoglobin 30.7 pg (27.0-33.0); Mean Corpuscular Volume 95.8 fL (80.0-98.0); Mean Platelet Volume 10.4 fL (9.4-12.3); Monocytes Absolute Auto 0.5 X10*3/uL (0.1-1.2); Monocytes Percent Auto 6.2 % (2-11); Neutrophils Absolute Auto 6.4 x10*3/uL (2.0-8.3); Neutrophils Percent Auto 73.8 % (45-73); Platelet Count 175 X10*3/uL (160-400); Red Blood Count 4.27 X10*6/uL (4.20-5.50); White Blood Count 8.6 X10*3/uL (4.8-10.8)
[2022-07-26] MEDS: Artificial Tears 15 ML DROPS 1 DROP EYE-BOTH ×3 (09:20→21:03)
[2022-07-26 09:34] LABS: Alanine Aminotransferase 48 U/L (0-31); Albumin Level 3.6 g/dL (3.5-5.0); Alkaline Phosphatase 104 U/L (39-117); Anion Gap 13 (12-20); Aspartate Amino Transferase 36 U/L (5-31); Blood Urea Nitrogen 23 mg/dL (9-16); Calcium 9.6 mg/dL (8.4-10.2); Carbon Dioxide 27 mmol/L (22-29); Chloride 107 mmol/L (96-108); Creatinine Clr Calc Pharmacy 32.1; Estimated Glomerular Filt Rate > 60; Glucose Random 111 mg/dL (60-115); Potassium 4.7 mmol/L (3.3-5.1); Sodium 142 mmol/L (135-145); Total Protein 6.5 g/dL (6.5-8.0)
[2022-07-26 18:00] VITALS: BP 139/63; PULSE 73; RESP 18; TEMP 36.6; O2SAT 98
--- NOTE | 2022-07-26 18:20 | P.PNPSI_ITS ---
Subjective Subjective Date of Service: 07/26/22 Reason For Visit: F29 Subjective Notes: Conditional Voluntary Interim History: Pt reports feeling dizzy. She also reports episode of vomiting after dinner last night. She reports right side abdominal pain which she reports is subsiding. Pt HOTN, encouraged fluids. Labs ordered- cbc, cmp, slight elevation in LFT. afe brile, no signs of infection. Pt reports similar pain with kidney stones, repeat UA. She denies SI/HI. No behavioral concerns. Per nursing, BP 93/53 Hr 109- will d/c amlodipine, hold lasix, Review of Systems Review of Systems General: No fevers, malaise, unintentional weight loss HEENT: No blurred vision, diplopia. No sore throat, nasal congestion, rhinorrhea, sinus pain, ear pain Cardiovascular: No chest pain, palpitations, or leg edema Respiratory: No shortness of breath, wheezing, cough GI: +RLQ pain. No nausea, vomiting, diarrhea, constipation, melena, hematochezia : No dysuria, hematuria, increased urinary frequency, decreased urinary output MSK: No myalgia, back pain Neuro: No headaches, weakness, paresthesias Skin: No rashes or lesions Mental Status Exam Mental Status Exam Narrative: Thin, emaciated. Patient Appearance: Appropriate Patient Orientation: Person and Situation Level of Consciousness: Awake and Appropriate Patient Behavior: Guarded and Passive Mood Description: Withdrawn Affect Description: Constricted Patient Cognition Impaired: Yes Ability to Follow Directions: Good Speech Pattern: Clear Memory Description: Immediate Impaired (forgets she told this sports writer the story of her clothes being stolen) and Episodic Impaired Diagnostics Vital Signs (24Hr): Vital Signs - 24 hr 07/25/22 19:30 07/26/22 08:28 Temperature 97.4 F 97.1 F Pulse Rate 65 78 Respiratory Rate 18 18 Blood Pressure 110/56 L 101/50 L Pulse Oximetry 99 97 Oxygen Delivery Method Room Air Room Air BMI result Body Mass Index 17.6 Labs 07/26/22 08:41 07/26/22 08:41 Labs: Laboratory Results - last 48 hr 07/26/22 07/26/22 08:41 08:41 WBC 8.6 RBC 4.27 Hgb 13.1 Hct 40.9 MCV 95.8 MCH 30.7 MCHC 32.0 RDW 13.0 Plt Count 175 MPV 10.4 Immature Gran % (Auto) 0.3 Neut % (Auto) 73.8 H Lymph % (Auto) 19.3 L [place] % (Auto) 6.2 Eos % (Auto) 0.2 Baso % (Auto) 0.2 Lymph # (Auto) 1.7 [place] # (Auto) 0.5 Eos # (Auto) 0.0 Baso # (Auto) 0.0 Abs Immat Gran (auto) 0.03 Absolute Neuts (auto) 6.4 Absolute Nucleated RBC 0.000 Nucleated RBC % (auto) 0.0 Sodium 142 Potassium 4.7 D Chloride 107 Carbon Dioxide 27 Anion Gap 13 BUN 23 H Creatinine 0.90 Estim Creat Clear Calc 32.1 Estimated GFR > 60 Random Glucose 111 Calcium 9.6 Total Bilirubin 1.0 AST 36 H ALT 48 H Alkaline Phosphatase 104 Total Protein 6.5 Albumin 3.6 Imaging Radiology Impressions: ITS Impressions Renal Ultrasound 07/11/22 16:30 IMPRESSION: Bilateral renal cysts. There are no echogenic stones or hydronephrosis. Medications Medications Current Medications Acetaminophen (Acetaminophen 325 Mg Tablet) 650 mg PO Q6H PRN PRN Reason: Headache/Pain Mild Scale (1-3) Al Hydroxide/Mg Hydroxide (Magnesium Hydrox/Alum Hydrox 30 Ml Oral.Susp) 30 ml PO Q6H PRN PRN Reason: Heartburn/Nausea Last Admin: 07/25/22 22:15 Dose: 30 ml Artificial Tears (Artificial Tears 15 Ml Drops) 1 drop EYE-BOTH TID REPLACED BY [facility] Last Admin: 07/26/22 14:26 Dose: 1 drop Atorvastatin Calcium (Atorvastatin Calcium 10 Mg Tablet) 10 mg PO DAILY [facility]PL[facility] Last Admin: 07/26/22 09:19 Dose: Not Given Calcium Carbonate/Cholecalciferol (Calcium + Vitamin D 250 Mg Tablet) 500 mg PO DAILY [facility]PL[facility] Last Admin: 07/26/22 09:19 Dose: Not Given Cyanocobalamin (Cyanocobalamin (Vitamin B-12) 1,000 Mcg Tablet) 1,000 mcg PO DAILY [facility] Last Admin: 07/26/22 09:19 Dose: Not Given Donepezil HCl (Donepezil Hcl 5 Mg Tablet) 5 mg PO BEDTIME REPLACED BY [facility] Last Admin: 07/25/22 20:28 Dose: 5 mg Furosemide (Furosemide 20 Mg Tablet) 20 mg PO DAILY [facility]; Protocol Last Admin: 07/25/22 10:06 Dose: Not Given Magnesium Hydroxide (Milk Of Magnesia 30 Ml Oral.Susp) 30 ml PO DAILY PRN PRN Reason: Constipation Risperidone (Risperidone 0.25 Mg Tablet) 0.25 mg PO TID PRN PRN Reason: Psychosis Risperidone (Risperidone 1 Mg Tablet) 1 mg PO BEDTIME [facility] Last Admin: 07/25/22 20:28 Dose: 1 mg Senna (Sennosides 8.6 Mg Tablet) 8.6 mg PO DAILY PRN PRN Reason: Constipation Trazodone HCl (Trazodone Hcl 50 Mg Tablet) 50 mg PO BEDTIME PRN PRN Reason: Insomnia Allergies Allergies Allergy/AdvReac Type Severity Reaction Status Date / Time alendronate sodium Allergy Unknown Verified 07/21/22 08:50 ondansetron [From Zofran] Allergy Unknown Verified 07/21/22 08:50 oxybutynin Allergy Unknown Verified 07/21/22 08:50 sulfamethoxazole Allergy Unknown Verified 07/21/22 08:50 [From Bactrim] terazosin [From Hytrin] Allergy Unknown Verified 07/21/22 08:50 trimethoprim [From Bactrim] Allergy Unknown Verified 07/21/22 08:50 Assessment & Plan Assessment & Plan (1) Vascular dementia, moderate, with psychotic disturbance: Status: Acute Code(s): F01.B2 - Vascular dementia, moderate, with psychotic disturbance Plan 81 yo with possible dementia, admitted with paranoid and persecutory delusions. Patient believes she is being targeted by a man who enters her house, pricks her with needles and steals from her. She has been unable to sleep. Not eating. She is paranoid and barricading herself in her apartment. Plan 07/24 continue current tx. 07/25 d/c amlodipine, hold lasix due to hotn and ortho hotn. 07/26 ordered cbc, cmp episode of vomiting, pt reports feeling dizzy and weak. Reason for continued inpatient stay Substantial Risk for: inability to function Time Spent With Patient Time: Total time managing care of this patient today ____ minutes.
[2022-07-26] MEDS: Donepezil HCl 5 MG TABLET PO (21:32)
[2022-07-26] MEDS: risperiDONE 1 MG TABLET PO (21:32)
[2022-07-26 23:50] LABS: Appearance Urine Clear; Color Urine Yellow; Glucose Urine UA Negative (Negative); Leukocyte Esterase Urine Trace (Negative); Nitrite Urine Negative (Negative); UMIC TRIGGER UACC YES; Urine Blood Negative (Negative); Urine Ketones Negative (Negative); Urine Protein Negative (Neg-Trace)
[2022-07-26 23:55] LABS: Bacteria Urine None Seen (None Seen); Hyaline Casts Urine 0-2 /LPF (0-2); RBC Urine 0-2 /HPF (0-2); Squamous Epithelial Cell Urine 0-2 /HPF (0-2); WBC Urine 0-5 /HPF (0-5)
[2022-07-27 08:30] VITALS: BP 139/68; PULSE 82; RESP 16; TEMP 36.6; O2SAT 97
[2022-07-27] MEDS: Artificial Tears 15 ML DROPS 1 DROP EYE-BOTH ×2 (08:38→15:23)
[2022-07-27] MEDS: Cyanocobalamin (Vitamin B-12) 1,000 MCG TABLET 1000 MCG PO (08:38)
[2022-07-27] MEDS: Atorvastatin Calcium 10 MG TABLET PO (08:38)
[2022-07-27] MEDS: Calcium + Vitamin D 250 MG TABLET 500 MG PO (08:39)
--- NOTE | 2022-07-27 12:18 | HO.PSYCHPN ---
Subjective Subjective Date of Service: 07/27/22 Reason For Visit: F29 Subjective Notes: Conditional Voluntary Interim History: The nursing staff reported the patient had been compliant with medications she has been pleasant and cooperative. Over the weekend she was slightly that he had rotated in p.o. fluids were encouraged. The director social welfare reported that we will have a meeting with assisting living facilities today for possible discharge planning. On interview the patient reports some over-sedation with Risperdal at night. Mental Status Exam Mental Status Exam Mood Description: Calm and Withdrawn Affect Description: Constricted Patient Cognition Impaired: Yes Ability to Follow Directions: Fair Speech Pattern: Clear Hallucinations: None Delusions: Paranoid Ideation Thought Process: Illogical and Distracted Thought Content: positive for [place] and positive for Poverty of Content Judgement: Fair Diagnostics Vital Signs (24Hr): Vital Signs - 24 hr 07/26/22 18:00 07/27/22 08:30 Temperature 97.8 F 97.8 F Pulse Rate 73 82 Respiratory Rate 18 16 Blood Pressure 139/63 139/68 Pulse Oximetry 98 97 Oxygen Delivery Method Room Air Room Air BMI result Body Mass Index 17.6 Labs 07/26/22 08:41 07/26/22 08:41 Labs: Laboratory Results - last 48 hr 07/26/22 07/26/22 07/26/22 08:41 08:41 23:30 WBC 8.6 RBC 4.27 Hgb 13.1 Hct 40.9 MCV 95.8 MCH 30.7 MCHC 32.0 RDW 13.0 Plt Count 175 MPV 10.4 Immature Gran % (Auto) 0.3 Neut % (Auto) 73.8 H Lymph % (Auto) 19.3 L [place] % (Auto) 6.2 Eos % (Auto) 0.2 Baso % (Auto) 0.2 Lymph # (Auto) 1.7 [place] # (Auto) 0.5 Eos # (Auto) 0.0 Baso # (Auto) 0.0 Abs Immat Gran (auto) 0.03 Absolute Neuts (auto) 6.4 Absolute Nucleated RBC 0.000 Nucleated RBC % (auto) 0.0 Sodium 142 Potassium 4.7 D Chloride 107 Carbon Dioxide 27 Anion Gap 13 BUN 23 H Creatinine 0.90 Estim Creat Clear Calc 32.1 Estimated GFR > 60 Random Glucose 111 Calcium 9.6 Total Bilirubin 1.0 AST 36 H ALT 48 H Alkaline Phosphatase 104 Total Protein 6.5 Albumin 3.6 Urine Color Yellow Urine Appearance Clear Urine pH 7.0 Ur Specific [place] 1.010 Urine Protein Negative Urine Glucose (UA) Negative Urine Ketones Negative Urine Blood Negative Urine Nitrite Negative Ur Leukocyte Esterase Trace H Urine RBC 0-2 Urine WBC 0-5 Ur Squamous Epith Cells 0-2 Urine Bacteria None Seen Hyaline Casts 0-2 Imaging Radiology Impressions: ITS Impressions Renal Ultrasound 07/11/22 16:30 IMPRESSION: Bilateral renal cysts. There are no echogenic stones or hydronephrosis. Medications Medications Current Medications Acetaminophen (Acetaminophen 325 Mg Tablet) 650 mg PO Q6H PRN PRN Reason: Headache/Pain Mild Scale (1-3) Al Hydroxide/Mg Hydroxide (Magnesium Hydrox/Alum Hydrox 30 Ml Oral.Susp) 30 ml PO Q6H PRN PRN Reason: Heartburn/Nausea Last Admin: 07/25/22 22:15 Dose: 30 ml Artificial Tears (Artificial Tears 15 Ml Drops) 1 drop EYE-BOTH TID [facility] Last Admin: 07/27/22 08:38 Dose: 1 drop Atorvastatin Calcium (Atorvastatin Calcium 10 Mg Tablet) 10 mg PO DAILY [facility] Last Admin: 07/27/22 08:38 Dose: 10 mg Calcium Carbonate/Cholecalciferol (Calcium + Vitamin D 250 Mg Tablet) 500 mg PO DAILY [facility] Last Admin: 07/27/22 08:39 Dose: 500 mg Cyanocobalamin (Cyanocobalamin (Vitamin B-12) 1,000 Mcg Tablet) 1,000 mcg PO DAILY [facility] Last Admin: 07/27/22 08:38 Dose: 1,000 mcg Donepezil HCl (Donepezil Hcl 5 Mg Tablet) 5 mg PO BEDTIME [facility] Last Admin: 07/26/22 21:32 Dose: 5 mg Furosemide (Furosemide 20 Mg Tablet) 20 mg PO DAILY [facility]; Protocol Last Admin: 07/25/22 10:06 Dose: Not Given Magnesium Hydroxide (Milk Of Magnesia 30 Ml Oral.Susp) 30 ml PO DAILY PRN PRN Reason: Constipation Risperidone (Risperidone 0.25 Mg Tablet) 0.25 mg PO TID PRN PRN Reason: Psychosis Risperidone (Risperidone 1 Mg Tablet) 1 mg PO BEDTIME [facility] Last Admin: 07/26/22 21:32 Dose: 1 mg Senna (Sennosides 8.6 Mg Tablet) 8.6 mg PO DAILY PRN PRN Reason: Constipation Trazodone HCl (Trazodone Hcl 50 Mg Tablet) 50 mg PO BEDTIME PRN PRN Reason: Insomnia Allergies Allergies Allergy/AdvReac Type Severity Reaction Status Date / Time alendronate sodium Allergy Unknown Verified 07/21/22 08:50 ondansetron [From Zofran] Allergy Unknown Verified 07/21/22 08:50 oxybutynin Allergy Unknown Verified 07/21/22 08:50 sulfamethoxazole Allergy Unknown Verified 07/21/22 08:50 [From Bactrim] terazosin [From Hytrin] Allergy Unknown Verified 07/21/22 08:50 trimethoprim [From Bactrim] Allergy Unknown Verified 07/21/22 08:50 Assessment & Plan Assessment & Plan (1) Vascular dementia, moderate, with psychotic disturbance: Status: Acute Code(s): F01.B2 - Vascular dementia, moderate, with psychotic disturbance Plan 81 yo with possible dementia, admitted with paranoid and persecutory delusions. Patient believes she is being targeted by a man who enters her house, pricks her with needles and steals from her. She has been unable to sleep. Not eating. She is paranoid and barricading herself in her apartment. Plan 1. Gather collateral information. 2. Continue Risperdal 1 mg po dialy 3. Start disposition plan Reason for continued inpatient stay Substantial Risk for: inability to function, rapid decompensation and med/psych decompensation Time Spent With Patient Time: Total time managing care of this patient today __20__ minutes.
[2022-07-27 18:00] VITALS: BP 124/64; PULSE 69; RESP 18; TEMP 36.4; O2SAT 99
[2022-07-27] MEDS: Acetaminophen 325 MG TABLET 650 MG PO (21:24)
[2022-07-28 08:05] VITALS: BP 111/53; PULSE 74; RESP 14; TEMP 36.6; O2SAT 96
[2022-07-28] MEDS: Artificial Tears 15 ML DROPS 1 DROP EYE-BOTH ×2 (08:08→20:31)
[2022-07-28] MEDS: Calcium + Vitamin D 250 MG TABLET 500 MG PO (08:08)
[2022-07-28] MEDS: Cyanocobalamin (Vitamin B-12) 1,000 MCG TABLET 1000 MCG PO (08:08)
[2022-07-28] MEDS: Atorvastatin Calcium 10 MG TABLET PO (08:08)
--- NOTE | 2022-07-28 10:48 | HO.PSYCHPN ---
Subjective Subjective Date of Service: 07/28/22 Reason For Visit: F29 Subjective Notes: Conditional Voluntary Interim History: The nursing staff reported the patient has refused Risperdal last night. She stated that she is feeling fine she denies new symptoms. The social science teacher reported that he had a meeting with the staff for the assisting living facility and he was pretty contentious since the staff was very oppositional. The nephew who is his healthcare proxy is aware of the situation. On interview the patient denies paranoia still believing that her Stalker could be around but easily redirectable. Mental Status Exam Mental Status Exam Patient Appearance: Well Grooomed and Appropriate Patient Orientation: Person and Situation Level of Consciousness: Awake and Appropriate Patient Behavior: Guarded and Passive Mood Description: Withdrawn and Constricted Affect Description: Calm Patient Cognition Impaired: Yes Ability to Follow Directions: Good Speech Pattern: Clear Hallucinations: None Delusions: Paranoid Ideation Thought Process: Distracted and Slowed Thinking Thought Content: positive for [place], positive for Poverty of Content and positive for Thought Blocking Judgement: Fair Diagnostics Vital Signs (24Hr): Vital Signs - 24 hr 07/27/22 18:00 07/28/22 08:05 Temperature 97.5 F 97.9 F Pulse Rate 69 74 Respiratory Rate 18 14 Blood Pressure 124/64 111/53 L Pulse Oximetry 99 96 Oxygen Delivery Method Room Air Room Air BMI result Body Mass Index 17.6 Labs 07/26/22 08:41 07/26/22 08:41 Labs: Laboratory Results - last 48 hr 07/26/22 23:30 Urine Color Yellow Urine Appearance Clear Urine pH 7.0 Ur Specific [place] 1.010 Urine Protein Negative Urine Glucose (UA) Negative Urine Ketones Negative Urine Blood Negative Urine Nitrite Negative Ur Leukocyte Esterase Trace H Urine RBC 0-2 Urine WBC 0-5 Ur Squamous Epith Cells 0-2 Urine Bacteria None Seen Hyaline Casts 0-2 Imaging Radiology Impressions: ITS Impressions Renal Ultrasound 07/11/22 16:30 IMPRESSION: Bilateral renal cysts. There are no echogenic stones or hydronephrosis. Medications Medications Current Medications Acetaminophen (Acetaminophen 325 Mg Tablet) 650 mg PO Q6H PRN PRN Reason: Headache/Pain Mild Scale (1-3) Last Admin: 07/27/22 21:24 Dose: 650 mg Al Hydroxide/Mg Hydroxide (Magnesium Hydrox/Alum Hydrox 30 Ml Oral.Susp) 30 ml PO Q6H PRN PRN Reason: Heartburn/Nausea Last Admin: 07/25/22 22:15 Dose: 30 ml Artificial Tears (Artificial Tears 15 Ml Drops) 1 drop EYE-BOTH TID [facility] Last Admin: 07/28/22 08:08 Dose: 1 drop Atorvastatin Calcium (Atorvastatin Calcium 10 Mg Tablet) 10 mg PO DAILY [facility] Last Admin: 07/28/22 08:08 Dose: 10 mg Calcium Carbonate/Cholecalciferol (Calcium + Vitamin D 250 Mg Tablet) 500 mg PO DAILY [facility] Last Admin: 07/28/22 08:08 Dose: 500 mg Cyanocobalamin (Cyanocobalamin (Vitamin B-12) 1,000 Mcg Tablet) 1,000 mcg PO DAILY [facility] Last Admin: 07/28/22 08:08 Dose: 1,000 mcg Donepezil HCl (Donepezil Hcl 5 Mg Tablet) 5 mg PO BEDTIME [facility] Last Admin: 07/27/22 21:47 Dose: Not Given Furosemide (Furosemide 20 Mg Tablet) 20 mg PO DAILY [facility]; Protocol Last Admin: 07/25/22 10:06 Dose: Not Given Magnesium Hydroxide (Milk Of Magnesia 30 Ml Oral.Susp) 30 ml PO DAILY PRN PRN Reason: Constipation Risperidone (Risperidone 0.25 Mg Tablet) 0.25 mg PO TID PRN PRN Reason: Psychosis Risperidone (Risperidone 1 Mg Tablet) 1 mg PO BEDTIME [facility] Last Admin: 07/27/22 21:48 Dose: Not Given Senna (Sennosides 8.6 Mg Tablet) 8.6 mg PO DAILY PRN PRN Reason: Constipation Trazodone HCl (Trazodone Hcl 50 Mg Tablet) 50 mg PO BEDTIME PRN PRN Reason: Insomnia Allergies Allergies Allergy/AdvReac Type Severity Reaction Status Date / Time alendronate sodium Allergy Unknown Verified 07/21/22 08:50 ondansetron [From Zofran] Allergy Unknown Verified 07/21/22 08:50 oxybutynin Allergy Unknown Verified 07/21/22 08:50 sulfamethoxazole Allergy Unknown Verified 07/21/22 08:50 [From Bactrim] terazosin [From Hytrin] Allergy Unknown Verified 07/21/22 08:50 trimethoprim [From Bactrim] Allergy Unknown Verified 07/21/22 08:50 Assessment & Plan Assessment & Plan (1) Vascular dementia, moderate, with psychotic disturbance: Status: Acute Code(s): F01.B2 - Vascular dementia, moderate, with psychotic disturbance Plan 81 yo with possible dementia, admitted with paranoid and persecutory delusions. Patient believes she is being targeted by a man who enters her house, pricks her with needles and steals from her. She has been unable to sleep. Not eating. She is paranoid and barricading herself in her apartment. Plan 1. Gather collateral information. 2. Continue Risperdal 1 mg po dialy 3. Start disposition plan Reason for continued inpatient stay Substantial Risk for: inability to function, rapid decompensation and med/psych decompensation Time Spent With Patient Time: Total time managing care of this patient today __20__ minutes.
[2022-07-28 18:00] VITALS: BP 109/53; PULSE 70; RESP 18; TEMP 36.8; O2SAT 99
[2022-07-29 09:10] VITALS: BP 136/60; PULSE 69; RESP 18; TEMP 36.2; O2SAT 97
[2022-07-29] MEDS: Artificial Tears 15 ML DROPS 1 DROP EYE-BOTH ×2 (09:12→21:39)
[2022-07-29] MEDS: Cyanocobalamin (Vitamin B-12) 1,000 MCG TABLET 1000 MCG PO (09:14)
[2022-07-29] MEDS: Calcium + Vitamin D 250 MG TABLET 500 MG PO (09:14)
[2022-07-29] MEDS: Atorvastatin Calcium 10 MG TABLET PO (09:14)
--- NOTE | 2022-07-29 11:23 | MHC.CLN ---
F/U CONTINUES TO EAT SMALL AMOUNTS. DIET=REGULAR WITH ENSURE BID (700 KCALS, 40 G PROTEIN)-APPROPRIATE. SEEN BY SCREW SUPERVISOR 07/24 WITH NO CHANGES TO DIET CONSISTENCY. SHOWS FAVORABLE WEIGHT GAIN SINCE ADMISSION. ENCOURAGE INTAKE OF MEALS AND SUPPLEMENT ABLE. RD TO FOLLOW WEEKLY.
--- NOTE | 2022-07-29 13:01 | P.PNPSI_ITS ---
Subjective Subjective Date of Service: 07/29/22 Reason For Visit: F29 Subjective Notes: Conditional Voluntary Interim History: The nursing staff reported the patient has been isolative, he slept poorly last night. She feels safe in the unit. She remains delusional regarding her Stalker. The social organization professor reported that we contact assisted living facility and they will take her back on a more secure area. On interview the patient denies new symptoms she was in agreement of the transfer to the memory unit. Mental Status Exam Mental Status Exam Patient Appearance: Well Grooomed and Appropriate Patient Orientation: Person and Situation Level of Consciousness: Awake and Appropriate Patient Behavior: Guarded and Passive Mood Description: Withdrawn Affect Description: Constricted Patient Cognition Impaired: Yes Ability to Follow Directions: Good Speech Pattern: Clear Hallucinations: None Delusions: Paranoid Ideation Thought Process: Distracted and Evasive Thought Content: positive for [place] Judgement: Poor Diagnostics Vital Signs (24Hr): Vital Signs - 24 hr 07/28/22 18:00 07/29/22 09:10 Temperature 98.2 F 97.2 F Pulse Rate 70 69 Respiratory Rate 18 18 Blood Pressure 109/53 L 136/60 Pulse Oximetry 99 97 Oxygen Delivery Method Room Air Room Air BMI result Body Mass Index 17.6 Labs 07/26/22 08:41 07/26/22 08:41 Imaging Radiology Impressions: ITS Impressions Renal Ultrasound 07/11/22 16:30 IMPRESSION: Bilateral renal cysts. There are no echogenic stones or hydronephrosis. Medications Medications Current Medications Acetaminophen (Acetaminophen 325 Mg Tablet) 650 mg PO Q6H PRN PRN Reason: Headache/Pain Mild Scale (1-3) Last Admin: 07/27/22 21:24 Dose: 650 mg Al Hydroxide/Mg Hydroxide (Magnesium Hydrox/Alum Hydrox 30 Ml Oral.Susp) 30 ml PO Q6H PRN PRN Reason: Heartburn/Nausea Last Admin: 07/25/22 22:15 Dose: 30 ml Artificial Tears (Artificial Tears 15 Ml Drops) 1 drop EYE-BOTH TID [facility] Last Admin: 07/29/22 09:12 Dose: 1 drop Atorvastatin Calcium (Atorvastatin Calcium 10 Mg Tablet) 10 mg PO DAILY [facility] Last Admin: 07/29/22 09:14 Dose: 10 mg Calcium Carbonate/Cholecalciferol (Calcium + Vitamin D 250 Mg Tablet) 500 mg PO DAILY [facility] Last Admin: 07/29/22 09:14 Dose: 500 mg Cyanocobalamin (Cyanocobalamin (Vitamin B-12) 1,000 Mcg Tablet) 1,000 mcg PO DAILY [facility] Last Admin: 07/29/22 09:14 Dose: 1,000 mcg Donepezil HCl (Donepezil Hcl 5 Mg Tablet) 5 mg PO BEDTIME [facility] Last Admin: 07/28/22 20:37 Dose: Not Given Furosemide (Furosemide 20 Mg Tablet) 20 mg PO DAILY [facility]; Protocol Last Admin: 07/25/22 10:06 Dose: Not Given Magnesium Hydroxide (Milk Of Magnesia 30 Ml Oral.Susp) 30 ml PO DAILY PRN PRN Reason: Constipation Risperidone (Risperidone 0.25 Mg Tablet) 0.25 mg PO TID PRN PRN Reason: Psychosis Risperidone (Risperidone 1 Mg Tablet) 1 mg PO BEDTIME [facility] Last Admin: 07/28/22 20:37 Dose: Not Given Senna (Sennosides 8.6 Mg Tablet) 8.6 mg PO DAILY PRN PRN Reason: Constipation Trazodone HCl (Trazodone Hcl 50 Mg Tablet) 50 mg PO BEDTIME PRN PRN Reason: Insomnia Allergies Allergies Allergy/AdvReac Type Severity Reaction Status Date / Time alendronate sodium Allergy Unknown Verified 07/21/22 08:50 ondansetron [From Zofran] Allergy Unknown Verified 07/21/22 08:50 oxybutynin Allergy Unknown Verified 07/21/22 08:50 sulfamethoxazole Allergy Unknown Verified 07/21/22 08:50 [From Bactrim] terazosin [From Hytrin] Allergy Unknown Verified 07/21/22 08:50 trimethoprim [From Bactrim] Allergy Unknown Verified 07/21/22 08:50 Assessment & Plan Assessment & Plan (1) Vascular dementia, moderate, with psychotic disturbance: Status: Acute Code(s): F01.B2 - Vascular dementia, moderate, with psychotic disturbance Plan 81 yo with possible dementia, admitted with paranoid and persecutory delusions. Patient believes she is being targeted by a man who enters her house, pricks her with needles and steals from her. She has been unable to sleep. Not eating. She is paranoid and barricading herself in her apartment. Plan 1. Gather collateral information. 2. Continue Risperdal 1 mg po dialy 3. Start disposition plan Reason for continued inpatient stay Substantial Risk for: inability to function, rapid decompensation and med/psych decompensation Time Spent With Patient Time: Total time managing care of this patient today _20___ minutes.
[2022-07-29 18:00] VITALS: BP 104/50; PULSE 65; RESP 16; TEMP 36.5; O2SAT 97
[2022-07-30 08:25] VITALS: BP 112/60; PULSE 64; RESP 18; TEMP 36; O2SAT 96
[2022-07-30] MEDS: Artificial Tears 15 ML DROPS 1 DROP EYE-BOTH ×3 (09:21→20:15)
[2022-07-30] MEDS: Atorvastatin Calcium 10 MG TABLET PO (09:39)
[2022-07-30] MEDS: Calcium + Vitamin D 250 MG TABLET 500 MG PO (09:40)
[2022-07-30] MEDS: Cyanocobalamin (Vitamin B-12) 1,000 MCG TABLET 1000 MCG PO (09:40)
[2022-07-30 13:42] VITALS: BMI 16.0
--- NOTE | 2022-07-30 15:09 | P.PNPSI_ITS ---
Subjective Subjective Date of Service: 07/30/22 Reason For Visit: F29 Subjective Notes: Conditional Voluntary Interim History: The nursing staff reported the patient has refused again her Risperdal stating that she has side effects. We discussed at length with the patient options and she agreed to change to Haldol. The social service coordinator reported the patient was very distraught perseverative and nonsensical yesterday on her office. We will try to continue medications and changed to Haldol. Mental Status Exam Mental Status Exam Patient Appearance: Appropriate Patient Orientation: Person and Situation Level of Consciousness: Awake and Appropriate Patient Behavior: Guarded and Passive Mood Description: Withdrawn Affect Description: Calm Patient Cognition Impaired: Yes Ability to Follow Directions: Good Speech Pattern: Clear Hallucinations: None Delusions: Paranoid Ideation Thought Process: Distracted Thought Content: positive for [place] and positive for [place] Judgement: Poor Diagnostics Vital Signs (24Hr): Vital Signs - 24 hr 07/29/22 18:00 07/30/22 08:25 Temperature 97.7 F 96.8 F Pulse Rate 65 64 Respiratory Rate 16 18 Blood Pressure 104/50 L 112/60 Pulse Oximetry 97 96 Oxygen Delivery Method Room Air Room Air BMI result Body Mass Index 16.0 Labs 07/26/22 08:41 07/26/22 08:41 Imaging Radiology Impressions: ITS Impressions Renal Ultrasound 07/11/22 16:30 IMPRESSION: Bilateral renal cysts. There are no echogenic stones or hydronephrosis. Medications Medications Current Medications Acetaminophen (Acetaminophen 325 Mg Tablet) 650 mg PO Q6H PRN PRN Reason: Headache/Pain Mild Scale (1-3) Last Admin: 07/27/22 21:24 Dose: 650 mg Al Hydroxide/Mg Hydroxide (Magnesium Hydrox/Alum Hydrox 30 Ml Oral.Susp) 30 ml PO Q6H PRN PRN Reason: Heartburn/Nausea Last Admin: 07/25/22 22:15 Dose: 30 ml Artificial Tears (Artificial Tears 15 Ml Drops) 1 drop EYE-BOTH TID [facility] Last Admin: 07/30/22 14:18 Dose: 1 drop Atorvastatin Calcium (Atorvastatin Calcium 10 Mg Tablet) 10 mg PO DAILY [facility] Last Admin: 07/30/22 09:39 Dose: 10 mg Calcium Carbonate/Cholecalciferol (Calcium + Vitamin D 250 Mg Tablet) 500 mg PO DAILY [facility] Last Admin: 07/30/22 09:40 Dose: 500 mg Cyanocobalamin (Cyanocobalamin (Vitamin B-12) 1,000 Mcg Tablet) 1,000 mcg PO DAILY [facility] Last Admin: 07/30/22 09:40 Dose: 1,000 mcg Donepezil HCl (Donepezil Hcl 5 Mg Tablet) 5 mg PO BEDTIME [facility] Last Admin: 07/29/22 21:55 Dose: Not Given Furosemide (Furosemide 20 Mg Tablet) 20 mg PO DAILY [facility]; Protocol Last Admin: 07/25/22 10:06 Dose: Not Given Haloperidol (Haloperidol 1 Mg Tablet) 1 mg PO BEDTIME [facility] Magnesium Hydroxide (Milk Of Magnesia 30 Ml Oral.Susp) 30 ml PO DAILY PRN PRN Reason: Constipation Risperidone (Risperidone 0.25 Mg Tablet) 0.25 mg PO TID PRN PRN Reason: Psychosis Senna (Sennosides 8.6 Mg Tablet) 8.6 mg PO DAILY PRN PRN Reason: Constipation Trazodone HCl (Trazodone Hcl 50 Mg Tablet) 50 mg PO BEDTIME PRN PRN Reason: Insomnia Allergies Allergies Allergy/AdvReac Type Severity Reaction Status Date / Time alendronate sodium Allergy Unknown Verified 07/21/22 08:50 ondansetron [From Zofran] Allergy Unknown Verified 07/21/22 08:50 oxybutynin Allergy Unknown Verified 07/21/22 08:50 sulfamethoxazole Allergy Unknown Verified 07/21/22 08:50 [From Bactrim] terazosin [From Hytrin] Allergy Unknown Verified 07/21/22 08:50 trimethoprim [From Bactrim] Allergy Unknown Verified 07/21/22 08:50 Assessment & Plan Assessment & Plan (1) Vascular dementia, moderate, with psychotic disturbance: Status: Acute Code(s): F01.B2 - Vascular dementia, moderate, with psychotic disturbance Plan 81 yo with possible dementia, admitted with paranoid and persecutory delusions. Patient believes she is being targeted by a man who enters her house, pricks her with needles and steals from her. She has been unable to sleep. Not eating. She is paranoid and barricading herself in her apartment. Plan 1. Gather collateral information. 2. Continue Risperdal 1 mg po dialy. On July 30 it was discontinued due to side effects and start Haldol 1 mg p.o. q.h.s. 3. Start disposition plan Reason for continued inpatient stay Substantial Risk for: inability to function, rapid decompensation and med/psych decompensation Time Spent With Patient Time: Total time managing care of this patient today __20__ minutes.
[2022-07-30 18:00] VITALS: BP 109/63; PULSE 69; RESP 16; TEMP 36.6; O2SAT 100
[2022-07-30] MEDS: HaloperidoL 1 MG TABLET PO (20:14)
[2022-07-30] MEDS: Donepezil HCl 5 MG TABLET PO (20:15)
[2022-07-31] MEDS: traZODone HCL 50 MG TABLET PO (00:41)
[2022-07-31] MEDS: Artificial Tears 15 ML DROPS 1 DROP EYE-BOTH ×3 (11:36→20:07)
[2022-07-31] MEDS: Cyanocobalamin (Vitamin B-12) 1,000 MCG TABLET 1000 MCG PO (11:36)
[2022-07-31] MEDS: Atorvastatin Calcium 10 MG TABLET PO (11:36)
[2022-07-31] MEDS: Calcium + Vitamin D 250 MG TABLET 500 MG PO (11:36)
--- NOTE | 2022-07-31 14:09 | HO.PSYCHPN ---
Subjective Subjective Date of Service: 07/31/22 Reason For Visit: F29 Subjective Notes: Conditional Voluntary Interim History: The nursing staff reported the patient was compliant with her medications yesterday. Today she was incontinent of bowels and bladder that is unusual on her. We order a new you a to figure out if she has a UTI. On interview the patient denies new symptoms, we decided to increase Aricept to 10 mg p.o. q.h.s. and order a new UA. We will keep Haldol 1 mg p.o. q.h.s. since the patient is less than 120 lb. She asked about discharge as soon as possible. Mental Status Exam Mental Status Exam Patient Appearance: Well Grooomed and Appropriate Patient Orientation: Person and Situation Level of Consciousness: Awake and Appropriate Patient Behavior: Guarded and Passive Mood Description: Withdrawn Affect Description: Constricted Patient Cognition Impaired: Yes Ability to Follow Directions: Good Speech Pattern: Clear Hallucinations: None Delusions: Paranoid Ideation Thought Process: Distracted and Slowed Thinking Thought Content: positive for [place] Judgement: Fair Diagnostics Vital Signs (24Hr): Vital Signs - 24 hr 07/30/22 18:00 Temperature 97.9 F Pulse Rate 69 Respiratory Rate 16 Blood Pressure 109/63 Pulse Oximetry 100 Oxygen Delivery Method Room Air BMI result Body Mass Index 16.0 Labs 07/26/22 08:41 07/26/22 08:41 Imaging Radiology Impressions: ITS Impressions Renal Ultrasound 07/11/22 16:30 IMPRESSION: Bilateral renal cysts. There are no echogenic stones or hydronephrosis. Medications Medications Current Medications Acetaminophen (Acetaminophen 325 Mg Tablet) 650 mg PO Q6H PRN PRN Reason: Headache/Pain Mild Scale (1-3) Last Admin: 07/27/22 21:24 Dose: 650 mg Al Hydroxide/Mg Hydroxide (Magnesium Hydrox/Alum Hydrox 30 Ml Oral.Susp) 30 ml PO Q6H PRN PRN Reason: Heartburn/Nausea Last Admin: 07/25/22 22:15 Dose: 30 ml Artificial Tears (Artificial Tears 15 Ml Drops) 1 drop EYE-BOTH TID [facility] Last Admin: 07/31/22 11:36 Dose: 1 drop Atorvastatin Calcium (Atorvastatin Calcium 10 Mg Tablet) 10 mg PO DAILY [facility] Last Admin: 07/31/22 11:36 Dose: 10 mg Calcium Carbonate/Cholecalciferol (Calcium + Vitamin D 250 Mg Tablet) 500 mg PO DAILY [facility] Last Admin: 07/31/22 11:36 Dose: 500 mg Cyanocobalamin (Cyanocobalamin (Vitamin B-12) 1,000 Mcg Tablet) 1,000 mcg PO DAILY [facility] Last Admin: 07/31/22 11:36 Dose: 1,000 mcg Donepezil HCl (Donepezil Hcl 10 Mg Tablet) 10 mg PO BEDTIME [facility] Furosemide (Furosemide 20 Mg Tablet) 20 mg PO DAILY [facility]; Protocol Last Admin: 07/25/22 10:06 Dose: Not Given Haloperidol (Haloperidol 1 Mg Tablet) 1 mg PO BEDTIME [facility] Last Admin: 07/30/22 20:14 Dose: 1 mg Magnesium Hydroxide (Milk Of Magnesia 30 Ml Oral.Susp) 30 ml PO DAILY PRN PRN Reason: Constipation Risperidone (Risperidone 0.25 Mg Tablet) 0.25 mg PO TID PRN PRN Reason: Psychosis Senna (Sennosides 8.6 Mg Tablet) 8.6 mg PO DAILY PRN PRN Reason: Constipation Trazodone HCl (Trazodone Hcl 50 Mg Tablet) 50 mg PO BEDTIME PRN PRN Reason: Insomnia Last Admin: 07/31/22 00:41 Dose: 50 mg Allergies Allergies Allergy/AdvReac Type Severity Reaction Status Date / Time alendronate sodium Allergy Unknown Verified 07/21/22 08:50 ondansetron [From Zofran] Allergy Unknown Verified 07/21/22 08:50 oxybutynin Allergy Unknown Verified 07/21/22 08:50 sulfamethoxazole Allergy Unknown Verified 07/21/22 08:50 [From Bactrim] terazosin [From Hytrin] Allergy Unknown Verified 07/21/22 08:50 trimethoprim [From Bactrim] Allergy Unknown Verified 07/21/22 08:50 Assessment & Plan Assessment & Plan (1) Vascular dementia, moderate, with psychotic disturbance: Status: Acute Code(s): F01.B2 - Vascular dementia, moderate, with psychotic disturbance Plan 81 yo with possible dementia, admitted with paranoid and persecutory delusions. Patient believes she is being targeted by a man who enters her house, pricks her with needles and steals from her. She has been unable to sleep. Not eating. She is paranoid and barricading herself in her apartment. Plan 1. Gather collateral information. 2. Continue Risperdal 1 mg po dialy. On July 30 it was discontinued due to side effects and start Haldol 1 mg p.o. q.h.s. 3. Start disposition plan Reason for continued inpatient stay Substantial Risk for: inability to function, rapid decompensation and med/psych decompensation Time Spent With Patient Time: Total time managing care of this patient today __20__ minutes.
[2022-07-31 16:52] LABS: Appearance Urine Clear; Color Urine Yellow; Glucose Urine UA Negative (Negative); Leukocyte Esterase Urine Small (1+) (Negative); Nitrite Urine Negative (Negative); PH 5.5 (5.0-9.0); UMIC TRIGGER UACC YES; Urine Blood Negative (Negative); Urine Ketones Negative (Negative); Urine Protein Negative (Neg-Trace)
[2022-07-31 16:54] LABS: Bacteria Urine 1+ (None Seen); RBC Urine 0-2 /HPF (0-2); Squamous Epithelial Cell Urine >20 /HPF (0-2); UACC Culture Trigger YES
[2022-07-31 18:00] VITALS: BP 136/70; PULSE 60; RESP 16; TEMP 36.4; O2SAT 99
[2022-07-31] MEDS: HaloperidoL 1 MG TABLET PO (20:07)
[2022-07-31] MEDS: Donepezil HCl 10 MG TABLET PO (20:07)
[2022-08-01 08:33] VITALS: BP 124/62; PULSE 68; RESP 18; TEMP 36.2; O2SAT 97
[2022-08-01] MEDS: Calcium + Vitamin D 250 MG TABLET 500 MG PO (09:08)
[2022-08-01] MEDS: Atorvastatin Calcium 10 MG TABLET PO (09:08)
[2022-08-01] MEDS: Cyanocobalamin (Vitamin B-12) 1,000 MCG TABLET 1000 MCG PO (09:08)
[2022-08-01] MEDS: Artificial Tears 15 ML DROPS 1 DROP EYE-BOTH ×3 (09:09→20:11)
--- NOTE | 2022-08-01 10:59 | P.PNPSI_ITS ---
Subjective Subjective Date of Service: 08/01/22 Reason For Visit: F29 Subjective Notes: Conditional Voluntary Healthcare Proxy: No Guardianship: No Medical Problems Affecting Mental Status: No Interim History: Patient was seen and discussed in rounds today. Records and plans were reviewed. She has been tolerating the Haldol which was started 1 mg for her paranoia and psychosis. She continues to be delusional about a Stalker. Urinalysis was negative for any UTI. She continues to be med compliant. She continues to be perseverative. No changes were made today Medication Compliance: Yes Review of Systems Review of Systems Yes all other systems are reviewed and are negative Mental Status Exam Mental Status Exam Patient Appearance: Well Grooomed and Appropriate Patient Orientation: Person and Situation Level of Consciousness: Awake and Appropriate Patient Behavior: Guarded and Passive Mood Description: Withdrawn Affect Description: Constricted Patient Cognition Impaired: Yes Ability to Follow Directions: Good Speech Pattern: Clear Hallucinations: None Delusions: Paranoid Ideation Thought Process: Distracted and Slowed Thinking Thought Content: positive for [place] Judgement: Fair Diagnostics Vital Signs (24Hr): Vital Signs - 24 hr 07/31/22 18:00 08/01/22 08:33 Temperature 97.5 F 97.1 F Pulse Rate 60 68 Respiratory Rate 16 18 Blood Pressure 136/70 124/62 Pulse Oximetry 99 97 Oxygen Delivery Method Room Air BMI result Body Mass Index 16.0 Labs 07/26/22 08:41 07/26/22 08:41 Labs: Laboratory Results - last 48 hr 07/31/22 16:45 Urine Color Yellow Urine Appearance Clear Urine pH 5.5 Ur Specific [place] 1.020 Urine Protein Negative Urine Glucose (UA) Negative Urine Ketones Negative Urine Blood Negative Urine Nitrite Negative Ur Leukocyte Esterase Small (1+) H Urine RBC 0-2 Urine WBC 6-10 H Ur Squamous Epith Cells >20 Urine Bacteria 1+ Hyaline Casts 3-5 Imaging Radiology Impressions: ITS Impressions Renal Ultrasound 07/11/22 16:30 IMPRESSION: Bilateral renal cysts. There are no echogenic stones or hydronephrosis. Medications Medications Current Medications Acetaminophen (Acetaminophen 325 Mg Tablet) 650 mg PO Q6H PRN PRN Reason: Headache/Pain Mild Scale (1-3) Last Admin: 07/27/22 21:24 Dose: 650 mg Al Hydroxide/Mg Hydroxide (Magnesium Hydrox/Alum Hydrox 30 Ml Oral.Susp) 30 ml PO Q6H PRN PRN Reason: Heartburn/Nausea Last Admin: 07/25/22 22:15 Dose: 30 ml Artificial Tears (Artificial Tears 15 Ml Drops) 1 drop EYE-BOTH TID [facility] Last Admin: 08/01/22 09:09 Dose: 1 drop Atorvastatin Calcium (Atorvastatin Calcium 10 Mg Tablet) 10 mg PO DAILY [facility] Last Admin: 08/01/22 09:08 Dose: 10 mg Calcium Carbonate/Cholecalciferol (Calcium + Vitamin D 250 Mg Tablet) 500 mg PO DAILY [facility] Last Admin: 08/01/22 09:08 Dose: 500 mg Cyanocobalamin (Cyanocobalamin (Vitamin B-12) 1,000 Mcg Tablet) 1,000 mcg PO DAILY [facility] Last Admin: 08/01/22 09:08 Dose: 1,000 mcg Donepezil HCl (Donepezil Hcl 10 Mg Tablet) 10 mg PO BEDTIME [facility] Last Admin: 07/31/22 20:07 Dose: 10 mg Furosemide (Furosemide 20 Mg Tablet) 20 mg PO DAILY [facility]; Protocol Last Admin: 07/25/22 10:06 Dose: Not Given Haloperidol (Haloperidol 1 Mg Tablet) 1 mg PO BEDTIME [facility] Last Admin: 07/31/22 20:07 Dose: 1 mg Magnesium Hydroxide (Milk Of Magnesia 30 Ml Oral.Susp) 30 ml PO DAILY PRN PRN Reason: Constipation Risperidone (Risperidone 0.25 Mg Tablet) 0.25 mg PO TID PRN PRN Reason: Psychosis Senna (Sennosides 8.6 Mg Tablet) 8.6 mg PO DAILY PRN PRN Reason: Constipation Trazodone HCl (Trazodone Hcl 50 Mg Tablet) 50 mg PO BEDTIME PRN PRN Reason: Insomnia Last Admin: 07/31/22 00:41 Dose: 50 mg Allergies Allergies Allergy/AdvReac Type Severity Reaction Status Date / Time alendronate sodium Allergy Unknown Verified 07/21/22 08:50 ondansetron [From Zofran] Allergy Unknown Verified 07/21/22 08:50 oxybutynin Allergy Unknown Verified 07/21/22 08:50 sulfamethoxazole Allergy Unknown Verified 07/21/22 08:50 [From Bactrim] terazosin [From Hytrin] Allergy Unknown Verified 07/21/22 08:50 trimethoprim [From Bactrim] Allergy Unknown Verified 06/06/23 08:50 Assessment & Plan Assessment & Plan (1) Vascular dementia, moderate, with psychotic disturbance: Status: Acute Code(s): F01.B2 - Vascular dementia, moderate, with psychotic disturbance Plan 81 yo with possible dementia, admitted with paranoid and persecutory delusions. Patient believes she is being targeted by a man who enters her house, pricks her with needles and steals from her. She has been unable to sleep. Not eating. She is paranoid and barricading herself in her apartment. Plan 1. Gather collateral information. 2. Continue Risperdal 1 mg po dialy. On July 30 it was discontinued due to side effects and start Haldol 1 mg p.o. q.h.s. 3. Start disposition plan 08/01: Continue current regimen and plans Reason for continued inpatient stay Substantial Risk for: inability to function and med/psych decompensation Time Spent With Patient Time: Total time managing care of this patient today ____ minutes.
[2022-08-01 18:00] VITALS: BP 122/61; PULSE 61; RESP 18; TEMP 36; O2SAT 97
[2022-08-01] MEDS: HaloperidoL 1 MG TABLET PO (20:11)
[2022-08-01] MEDS: Donepezil HCl 10 MG TABLET PO (20:11)
[2022-08-02 08:03] VITALS: BP 127/67; PULSE 65; RESP 20; TEMP 36.3; O2SAT 97
[2022-08-02] MEDS: Calcium + Vitamin D 250 MG TABLET 500 MG PO (10:06)
[2022-08-02] MEDS: Atorvastatin Calcium 10 MG TABLET PO (10:06)
[2022-08-02] MEDS: Cyanocobalamin (Vitamin B-12) 1,000 MCG TABLET 1000 MCG PO (10:07)
[2022-08-02] MEDS: Artificial Tears 15 ML DROPS 1 DROP EYE-BOTH ×3 (10:08→21:18)
--- NOTE | 2022-08-02 10:34 | P.PNPSI_ITS ---
Subjective Subjective Date of Service: 08/02/22 Reason For Visit: F29 Subjective Notes: Conditional Voluntary Healthcare Proxy: No Guardianship: No Medical Problems Affecting Mental Status: No Interim History: Patient was seen and discussed in rounds today. Records and plans were reviewed. She has been doing better but this morning she complained of some dizziness. Vital signs have been within range. No other complaints or side effects. She continues to have some delusions about a Stalker. She does have a lot of somatic complaints. Eating and sleeping adequately. No changes were made today Medication Compliance: Yes Review of Systems Review of Systems Slight dizziness Yes all other systems are reviewed and are negative Diagnostics Vital Signs (24Hr): Vital Signs - 24 hr 08/01/22 18:00 08/02/22 08:03 Temperature 96.8 F 97.3 F Pulse Rate 61 65 Respiratory Rate 18 20 Blood Pressure 122/61 127/67 Pulse Oximetry 97 97 Oxygen Delivery Method Room Air Room Air BMI result Body Mass Index 16.0 Labs 07/26/22 08:41 07/26/22 08:41 Labs: Laboratory Results - last 48 hr 07/31/22 16:45 Urine Color Yellow Urine Appearance Clear Urine pH 5.5 Ur Specific [place] 1.020 Urine Protein Negative Urine Glucose (UA) Negative Urine Ketones Negative Urine Blood Negative Urine Nitrite Negative Ur Leukocyte Esterase Small (1+) H Urine RBC 0-2 Urine WBC 6-10 H Ur Squamous Epith Cells >20 Urine Bacteria 1+ Hyaline Casts 3-5 Imaging Radiology Impressions: ITS Impressions Renal Ultrasound 07/11/22 16:30 IMPRESSION: Bilateral renal cysts. There are no echogenic stones or hydronephrosis. Medications Medications Current Medications Acetaminophen (Acetaminophen 325 Mg Tablet) 650 mg PO Q6H PRN PRN Reason: Headache/Pain Mild Scale (1-3) Last Admin: 07/27/22 21:24 Dose: 650 mg Al Hydroxide/Mg Hydroxide (Magnesium Hydrox/Alum Hydrox 30 Ml Oral.Susp) 30 ml PO Q6H PRN PRN Reason: Heartburn/Nausea Last Admin: 07/25/22 22:15 Dose: 30 ml Artificial Tears (Artificial Tears 15 Ml Drops) 1 drop EYE-BOTH TID [facility] Last Admin: 08/02/22 10:08 Dose: 1 drop Atorvastatin Calcium (Atorvastatin Calcium 10 Mg Tablet) 10 mg PO DAILY [facility] Last Admin: 08/02/22 10:06 Dose: 10 mg Calcium Carbonate/Cholecalciferol (Calcium + Vitamin D 250 Mg Tablet) 500 mg PO DAILY [facility] Last Admin: 08/02/22 10:06 Dose: 500 mg Cyanocobalamin (Cyanocobalamin (Vitamin B-12) 1,000 Mcg Tablet) 1,000 mcg PO DAILY [facility] Last Admin: 08/02/22 10:07 Dose: 1,000 mcg Donepezil HCl (Donepezil Hcl 10 Mg Tablet) 10 mg PO BEDTIME [facility] Last Admin: 08/01/22 20:11 Dose: 10 mg Furosemide (Furosemide 20 Mg Tablet) 20 mg PO DAILY [facility]; Protocol Last Admin: 07/25/22 10:06 Dose: Not Given Haloperidol (Haloperidol 1 Mg Tablet) 1 mg PO BEDTIME [facility] Last Admin: 08/01/22 20:11 Dose: 1 mg Magnesium Hydroxide (Milk Of Magnesia 30 Ml Oral.Susp) 30 ml PO DAILY PRN PRN Reason: Constipation Risperidone (Risperidone 0.25 Mg Tablet) 0.25 mg PO TID PRN PRN Reason: Psychosis Senna (Sennosides 8.6 Mg Tablet) 8.6 mg PO DAILY PRN PRN Reason: Constipation Trazodone HCl (Trazodone Hcl 50 Mg Tablet) 50 mg PO BEDTIME PRN PRN Reason: Insomnia Last Admin: 07/31/22 00:41 Dose: 50 mg Allergies Allergies Allergy/AdvReac Type Severity Reaction Status Date / Time alendronate sodium Allergy Unknown Verified 07/21/22 08:50 ondansetron [From Zofran] Allergy Unknown Verified 07/21/22 08:50 oxybutynin Allergy Unknown Verified 07/21/22 08:50 sulfamethoxazole Allergy Unknown Verified 07/21/22 08:50 [From Bactrim] terazosin [From Hytrin] Allergy Unknown Verified 07/21/22 08:50 trimethoprim [From Bactrim] Allergy Unknown Verified 07/21/22 08:50 Assessment & Plan Assessment & Plan (1) Vascular dementia, moderate, with psychotic disturbance: Status: Acute Code(s): F01.B2 - Vascular dementia, moderate, with psychotic disturbance Plan 81 yo with possible dementia, admitted with paranoid and persecutory delusions. Patient believes she is being targeted by a man who enters her house, pricks her with needles and steals from her. She has been unable to sleep. Not eating. She is paranoid and barricading herself in her apartment. Plan 1. Gather collateral information. 2. Continue Risperdal 1 mg po dialy. On July 30 it was discontinued due to side effects and start Haldol 1 mg p.o. q.h.s. 3. Start disposition plan 08/01: Continue current regimen and plans 08/02: Continue current regimen and plans Reason for continued inpatient stay Substantial Risk for: inability to function and med/psych decompensation Time Spent With Patient Time: Total time managing care of this patient today ____ minutes.
[2022-08-02 18:00] VITALS: BP 118/60; PULSE 66; RESP 18; TEMP 36.1; O2SAT 97
[2022-08-02] MEDS: Donepezil HCl 10 MG TABLET PO (21:19)
[2022-08-02] MEDS: HaloperidoL 1 MG TABLET PO (21:20)
[2022-08-03 08:01] VITALS: BP 140/63; PULSE 60; RESP 18; TEMP 36.2; O2SAT 98
--- NOTE | 2022-08-03 09:44 | P.PNPSI_ITS ---
Subjective Subjective Date of Service: 08/03/22 Reason For Visit: F29 Subjective Notes: Conditional Voluntary Interim History: The nursing staff reported the patient had been eating well she had not verbalize about her Stalker. The UA came back negative from Wednesday. The social problems specialist reported the nauseous compliant she will be discharged to the assisted living facility memory clinic at 11:00 o'clock. On interview the patient denies new symptoms waiting for disposition. Mental Status Exam Mental Status Exam Patient Appearance: Well Grooomed and Appropriate Patient Orientation: Person and Situation Level of Consciousness: Awake and Appropriate Patient Behavior: Guarded and Passive Mood Description: Withdrawn Affect Description: Constricted Patient Cognition Impaired: Yes Ability to Follow Directions: Good Speech Pattern: Clear Hallucinations: None Delusions: Paranoid Ideation Thought Process: Distracted and Evasive Thought Content: positive for [place] and positive for Poverty of Content Judgement: Poor Diagnostics Vital Signs (24Hr): Vital Signs - 24 hr 08/02/22 18:00 08/03/22 08:01 Temperature 97 F 97.2 F Pulse Rate 66 60 Respiratory Rate 18 18 Blood Pressure 118/60 140/63 H Pulse Oximetry 97 98 Oxygen Delivery Method Room Air Room Air BMI result Body Mass Index 16.0 Labs 07/26/22 08:41 07/26/22 08:41 Imaging Radiology Impressions: ITS Impressions Renal Ultrasound 07/11/22 16:30 IMPRESSION: Bilateral renal cysts. There are no echogenic stones or hydronephrosis. Medications Medications Current Medications Acetaminophen (Acetaminophen 325 Mg Tablet) 650 mg PO Q6H PRN PRN Reason: Headache/Pain Mild Scale (1-3) Last Admin: 07/27/22 21:24 Dose: 650 mg Al Hydroxide/Mg Hydroxide (Magnesium Hydrox/Alum Hydrox 30 Ml Oral.Susp) 30 ml PO Q6H PRN PRN Reason: Heartburn/Nausea Last Admin: 07/25/22 22:15 Dose: 30 ml Artificial Tears (Artificial Tears 15 Ml Drops) 1 drop EYE-BOTH TID [facility] Last Admin: 08/02/22 21:18 Dose: 1 drop Atorvastatin Calcium (Atorvastatin Calcium 10 Mg Tablet) 10 mg PO DAILY [facility] Last Admin: 08/02/22 10:06 Dose: 10 mg Calcium Carbonate/Cholecalciferol (Calcium + Vitamin D 250 Mg Tablet) 500 mg PO DAILY [facility] Last Admin: 08/02/22 10:06 Dose: 500 mg Cyanocobalamin (Cyanocobalamin (Vitamin B-12) 1,000 Mcg Tablet) 1,000 mcg PO DAILY [facility] Last Admin: 08/02/22 10:07 Dose: 1,000 mcg Donepezil HCl (Donepezil Hcl 10 Mg Tablet) 10 mg PO BEDTIME [facility] Last Admin: 08/02/22 21:19 Dose: 10 mg Furosemide (Furosemide 20 Mg Tablet) 20 mg PO DAILY [facility]; Protocol Last Admin: 07/25/22 10:06 Dose: Not Given Haloperidol (Haloperidol 1 Mg Tablet) 1 mg PO BEDTIME [facility] Last Admin: 08/02/22 21:20 Dose: 1 mg Magnesium Hydroxide (Milk Of Magnesia 30 Ml Oral.Susp) 30 ml PO DAILY PRN PRN Reason: Constipation Risperidone (Risperidone 0.25 Mg Tablet) 0.25 mg PO TID PRN PRN Reason: Psychosis Senna (Sennosides 8.6 Mg Tablet) 8.6 mg PO DAILY PRN PRN Reason: Constipation Trazodone HCl (Trazodone Hcl 50 Mg Tablet) 50 mg PO BEDTIME PRN PRN Reason: Insomnia Last Admin: 07/31/22 00:41 Dose: 50 mg Allergies Allergies Allergy/AdvReac Type Severity Reaction Status Date / Time alendronate sodium Allergy Unknown Verified 07/21/22 08:50 ondansetron [From Zofran] Allergy Unknown Verified 07/21/22 08:50 oxybutynin Allergy Unknown Verified 07/21/22 08:50 sulfamethoxazole Allergy Unknown Verified 07/21/22 08:50 [From Bactrim] terazosin [From Hytrin] Allergy Unknown Verified 07/21/22 08:50 trimethoprim [From Bactrim] Allergy Unknown Verified 07/21/22 08:50 Assessment & Plan Assessment & Plan (1) Vascular dementia, moderate, with psychotic disturbance: Status: Acute Code(s): F01.B2 - Vascular dementia, moderate, with psychotic disturbance Plan 81 yo with possible dementia, admitted with paranoid and persecutory delusions. Patient believes she is being targeted by a man who enters her house, pricks her with needles and steals from her. She has been unable to sleep. Not eating. She is paranoid and barricading herself in her apartment. Plan 1. Gather collateral information. 2. Continue Risperdal 1 mg po dialy. On July 30 it was discontinued due to side effects and start Haldol 1 mg p.o. q.h.s. 3. Start disposition plan Reason for continued inpatient stay Substantial Risk for: inability to function, rapid decompensation and med/psych decompensation Time Spent With Patient Time: Total time managing care of this patient today _20___ minutes.
[2022-08-03] MEDS: Artificial Tears 15 ML DROPS 1 DROP EYE-BOTH ×3 (09:53→21:23)
[2022-08-03] MEDS: Atorvastatin Calcium 10 MG TABLET PO (09:53)
[2022-08-03] MEDS: Calcium + Vitamin D 250 MG TABLET 500 MG PO (09:53)
[2022-08-03] MEDS: Cyanocobalamin (Vitamin B-12) 1,000 MCG TABLET 1000 MCG PO (09:53)
[2022-08-03] MEDS: Furosemide 20 MG TABLET PO (14:06)
[2022-08-03 18:00] VITALS: BP 159/78; PULSE 63; RESP 18; TEMP 36; O2SAT 98
[2022-08-03] MEDS: HaloperidoL 1 MG TABLET PO (21:02)
[2022-08-03] MEDS: Donepezil HCl 10 MG TABLET PO (21:02)
[2022-08-04] MEDS: traZODone HCL 50 MG TABLET PO (00:22)
--- NOTE | 2022-08-04 07:51 | PM.PSYDC ---
DS: Providers Provider Date of Service: 08/04/22 Date of admission: 07/10/22 19:54 Date of discharge: 08/04/22 Primary care physician: Unknown Physician Consults: 07/10/22 23:22 Consult to Hospitalist Routine Comment: Consulting Provider: Hospitalist Reason For Exam: OSH admission DS: Diagnosis Discharge Diagnosis (1) Vascular dementia, moderate, with psychotic disturbance: Status: Acute DS: Medications Discharge Medications Home Medications: Home Medications Medication Instructions Recorded Confirmed amlodipine 2.5 mg tablet 2.5 mg PO DAILY 07/10/22 07/10/22 Previous Rx's Medication Instructions Recorded acetaminophen 325 mg tablet 650 mg PO Q6H PRN Headache/Pain 08/03/22 Mild Scale (1-3) #30 tabs calcium carbonate 250 mg-vitamin 2 tab PO DAILY 30 days #60 tabs 08/03/22 D3 3.125 mcg (125 unit) tablet cyanocobalamin (vitamin B-12) 1,000 mcg PO DAILY #30 tabs 08/03/22 1,000 mcg tablet (Vitamin B-12) cyclosporine 0.05 % eye drops in a 1 drp ophthalmic (eye) BID 30 days 08/03/22 dropperette #1 ea donepezil 10 mg tablet 10 mg PO BEDTIME 30 days #30 tabs 08/03/22 furosemide 20 mg tablet 20 mg PO DAILY 30 days #30 tabs 08/03/22 haloperidol 1 mg tablet 1 mg PO BEDTIME 30 days #30 tabs 08/03/22 peg [id number] 1 1 drp ophthalmic (eye) TID 30 days 08/03/22 %-0.2 %-0.2 % eye drops #5 mL (Artificial Tears ([id number])) senna 8.6 mg PO DAILY PRN Constipation 08/03/22 30 days #30 tabs simvastatin 10 mg PO DAILY #30 tabs 08/03/22 Mental Status Exam Mental Status Exam Patient Appearance: Well Grooomed and Appropriate Patient Orientation: Person and Situation Level of Consciousness: Awake and Appropriate Patient Behavior: Guarded and Passive Mood Description: Withdrawn and Constricted Affect Description: Calm Patient Cognition Impaired: Yes Ability to Follow Directions: Good Speech Pattern: Clear Hallucinations: None Delusions: Paranoid Ideation Thought Process: Linear and Slowed Thinking Thought Content: positive for [place], positive for [place] and positive for Poverty of Content Judgement: Fair Data Data Completed and Pending Completed studies during hospitalization [Text1]: 07/31/22 16:45 Urine Color Yellow Urine Appearance Clear Urine pH 5.5 Ur Specific [place] 1.020 Urine Protein Negative Urine Glucose (UA) Negative Urine Ketones Negative Urine Blood Negative Urine Nitrite Negative Ur Leukocyte Esterase Small (1+) H Urine RBC 0-2 Urine WBC 6-10 H Ur Squamous Epith Cells >20 Urine Bacteria 1+ Hyaline Casts 3-5 07/31/22 17:01 Urine clean catch - Urine mandel top Urine Culture - Final 07/11/22 18:07 Urine clean catch - Clean Catch Midstream Urine Culture - Final Imaging Diagnostic Imaging Impressions Renal Ultrasound 07/11/22 16:30 IMPRESSION: Bilateral renal cysts. There are no echogenic stones or hydronephrosis. DS: Summary Hospital Course Hospital Course: The patient was transferred from the emergency room since she was complaining of paranoid delusions stating that there was Stalker who was following her and breaking into her apartment. Please see the HPI of the admission note for further details. We gather collateral information and it seems that she had chronic paranoid delusions. We started with Risperdal that was titrated up to 1 mg p.o. q.h.s. but unfortunately the patient reported over-sedation. We change to Haldol 1 mg p.o. q.h.s. with no evidence of paranoia or side effects. Also we did cognitive testing and she was diagnosed with neurocognitive disorder. She was started on Aricept titrated up to 10 mg p.o. daily. We had several family meetings and explained the diagnosis and the difficulty to treat chronic delusions if disorder. Even though the patient have paranoia with a fixed delusion, she never had auditory or visual hallucinations. A [facility] medical workout was done without any medical explanation. Since there were no safety concerns discharge planning was discussed. Time spent discussing smoking cessation with patient: 3 to 10 minutes Status at Discharge Cognitive/behavioral status at discharge: Impaired at baseline Functional status at discharge: independent ambulation Overall status at discharge: patient is back to baseline Time Spent with Patient Time attestation: Total time managing care of this patient today ____ minutes. Time spent: Less than 30 minutes Discharge Plan Discharge Patient Disposition: [facility] Discharge Diagnosis: Elusive disorder Dementia Referrals: Garrett Stephenson NP [facility] [Other] - 3-5 Days (You will have psychiatry provider Dr Regina Curry MD once you return to [facility] and she will work with [facility] and [facility] to manage you medications. You will have primary care provided by [facility] and they will come to [facility] for PCP appointments. ) [facility] [Other] - 08/04/22 11:00 am (Discharge to Third Floor unit for assisted living level of care.) Dr [facility] [Other] - 1 Week (You PCP s office and [facility] to set up appointment with Dr Regina Curry for psychiatry once you are back at [facility]. ) Discharge Medications: New acetaminophen 325 mg Tablet 650 mg PO Q6H PRN (Reason: Headache/Pain Mild Scale (1-3)) Qty: 30 0RF donepezil 10 mg Tablet 10 mg PO BEDTIME 30 Days Qty: 30 0RF haloperidol 1 mg Tablet 1 mg PO BEDTIME 30 Days Qty: 30 0RF calcium carbonate-vitamin D3 250 mg-3.125 mcg (125 unit) Tablet 2 tab PO DAILY 30 Days Qty: 60 0RF cyanocobalamin (vitamin B-12) [Vitamin B-12] 1,000 mcg Tablet 1,000 mcg PO DAILY Qty: 30 0RF Artificial Tears([id number]) 1-0.2-0.2 % Drops 1 drp ophthalmic (eye) TID 30 Days Qty: 5 0RF trazodone 50 mg tablet 50 mg PO BEDTIME Qty: 30 0RF trazodone 50 mg tablet 50 mg PO BEDTIME Qty: 30 0RF Continued furosemide 20 mg tablet 20 mg PO DAILY 30 Days Qty: 30 0RF cyclosporine 0.05 % dropperette 1 drp ophthalmic (eye) BID 30 Days Qty: 1 0RF senna tablet 8.6 mg PO DAILY PRN (Reason: Constipation) 30 Days Qty: 30 0RF simvastatin tablet 10 mg PO DAILY Qty: 30 0RF Discontinued amlodipine 2.5 mg tablet 2.5 mg PO DAILY Discharge Orders: Discharge Order (Routine); Ordered 08/04/22 Ordered By: Donavon Zuniga Diet: Advance to usual diet Activity on Discharge: As tolerated Stand Alone Forms: Patient Portal Discharge page Care Plan Goals: Care plan goals achieved in this admission Health Concerns: Continue treatment with primary care physician Plan of Treatment: Continue outpatient services for psychiatric management. Assessment: Elderly female with a history of dementia admitted for exacerbation of paranoid delusions, currently tolerating well Haldol 1 mg p.o. q.h.s. and titrated up on Aricept up to 10 mg p.o. q.h.s. to target dementia. At this moment no safety concerns, ready to be discharged to the community.
[2022-08-04 08:06] VITALS: BP 133/61; PULSE 70; RESP 18; TEMP 35.9; O2SAT 96
[2022-08-04] MEDS: Calcium + Vitamin D 250 MG TABLET 500 MG PO (09:38)
[2022-08-04] MEDS: Atorvastatin Calcium 10 MG TABLET PO (09:38)
[2022-08-04] MEDS: Furosemide 20 MG TABLET PO (09:38)
[2022-08-04] MEDS: Cyanocobalamin (Vitamin B-12) 1,000 MCG TABLET 1000 MCG PO (09:38)
[2022-08-04] MEDS: Artificial Tears 15 ML DROPS 1 DROP EYE-BOTH (09:38)
== END 2022-08-04 11:35 | DRG 885 ==
PROVIDERS: Physician Assistant; Psychiatry & Neurology Psychiatry; Social Worker; Admitting Provider Psychiatry & Neurology Psychiatry; Visit Provider Psychiatry & Neurology Psychiatry
DX: F22 Delusional disorders (principal); F01.B2 Vascular dementia, moderate, with psychotic disturbance; E78.5 Hyperlipidemia, unspecified; I10 Essential (primary) hypertension; Z79.899 Other long term (current) drug therapy
CPT/HCPCS: 36415; 76775; 80053; 80061; 81001; 82607; 82746; 83036; 84439; 84443; 85025; 87086; 92610